=== PATIENT | female | born 1930 | race Two or more races ===

== ENCOUNTER 2016-07-20 17:00 | Inpatient (IN) | payer MEDICARE, OTHER ==
[2016-07-20] MEDS ORDERED: SODIUM CHLORIDE 0.9% 1,000 ML IV STA ×4 (17:16→17:21)
--- NOTE | 2016-07-20 17:28 | ED ---
Syncope HPI - General Chief Complaint: Syncope Stated Complaint: NVD Time Seen by Provider: 07/20/16 17:00 Source: patient, family, EMS, RN notes reviewed Mode of arrival: EMS Limitations: no limitations - History of Present Illness Initial Comments: This is a 86-year-old female who states she had onset nausea vomiting diarrhea this morning. She states she was going the bathroom and she became very dizzy and passed out. She denies any pain or injury she states she does not believe she was out for very long. She just feels generally weak she denies any chest pain palpitations fevers chills sweats or other symptoms. She's not been on any recent antibiotics. She denies any headache neck pain. MD Complaint: loss of consciousness, other - Related Data Home Medications Medication Instructions Recorded Confirmed Aspirin EC [Ecotrin Low Dose] 81 mg PO AC-SUPPER 11/10/14 07/20/16 Furosemide [Lasix] 40 mg PO [facility] 11/10/14 07/20/16 Glimepiride [Amaryl] 4 mg PO [facility] 11/10/14 07/20/16 Glucosamine Sulfate 500 mg PO DAILY@1200 11/10/14 07/20/16 Insulin Detemir [Levemir] 45 unit SQ -SUPP 11/10/14 07/20/16 L.acidoph,Paracasei, B.lactis 1 tab PO [facility] 11/10/14 07/20/16 [Probiotic] Levothyroxine Sodium [Synthroid] 75 mcg PO DAILY 11/10/14 07/20/16 Multivitamins, Thera [Multivitamin] 1 tab PO [facility] 11/10/14 07/20/16 Potassium Chloride [K-Tab ER] 10 meq PO [facility] 11/10/14 07/20/16 Pravastatin Sodium [Pravachol] 40 mg PO HS 11/10/14 07/20/16 Telmisartan [Micardis] 40 mg PO [facility] 11/10/14 07/20/16 Ubidecarenone [Co Q-10] 200 mg PO DAILY@1200 11/10/14 07/20/16 Warfarin [Coumadin] 2.5 mg PO SUMOWETHFRSA 11/10/14 07/20/16 Warfarin [Coumadin] 5 mg PO TU 11/10/14 07/20/16 sitaGLIPtin [Januvia] 100 mg PO QAM 11/10/14 07/20/16 Calcium/Magnesium/Zinc 1 tab PO AC-SUPPER 07/20/16 07/20/16 [Saduvih-Ugtxdrake-Hfrg Tablet] Cholecalciferol [Vitamin D3] 1,000 unit PO DAILY@1200 07/20/16 07/20/16 Cyanocobalamin [Vitamin B-12] 1,000 mcg PO AC-SUPPER 07/20/16 07/20/16 Glimepiride [Amaryl] 2 mg PO AC-SUPPER 07/20/16 07/20/16 Krill Oil 500 mg PO AC-SUPPER 07/20/16 07/20/16 Allergies Allergy/AdvReac Type Severity Reaction Status Date / Time No Known Allergies Allergy Verified 07/20/16 17:43 Review of Systems ROS Statement: Those systems with pertinent positive or pertinent negative responses have been documented in the HPI. ROS Other: All systems not noted in ROS Statement are negative. Past Medical History Past Medical History: Diabetes Mellitus Additional Past Medical History / Comment(s): back pain, diverticulitis History of Any Multi-Drug Resistant Organisms: None Reported Additional Past Surgical History / Comment(s): colostomy with reversal, DVT Past Psychological History: No Psychological Hx Reported Smoking Status: Never smoker Past Alcohol Use History: None Reported Past Drug Use History: None Reported General Exam - General Exam Comments Initial Comments: This is a well up well-nourished awake alert oriented 3 female demonstrating a Katty Coma Scale of 15 Limitations: no limitations General appearance: alert, in no apparent distress Head exam: Present: atraumatic, normocephalic, normal inspection Eye exam: Present: normal appearance, PERRL, EOMI. Absent: scleral icterus, conjunctival injection, periorbital swelling ENT exam: Present: mucous membranes dry Neck exam: Present: normal inspection. Absent: tenderness, meningismus, lymphadenopathy Respiratory exam: Present: normal lung sounds bilaterally. Absent: respiratory distress, wheezes, rales, rhonchi, stridor Cardiovascular Exam: Present: regular rate, normal rhythm, normal heart sounds. Absent: systolic murmur, diastolic murmur, rubs, gallop, clicks GI/Abdominal exam: Present: soft, normal bowel sounds. Absent: distended, tenderness, guarding, rebound, rigid, mass, bruit, pulsatile mass, hernia Extremities exam: Present: normal inspection, full ROM, normal capillary refill. Absent: tenderness, pedal edema, joint swelling, calf tenderness Back exam: Present: normal inspection Neurological exam: Present: alert, oriented X3, CN II-XII intact Psychiatric exam: Present: normal affect, normal mood Skin exam: Present: warm, dry, intact, normal color. Absent: rash Course Vital Signs 07/20/16 07/20/16 07/20/16 17:13 20:10 21:36 Temperature 100.0 F H Pulse Rate 96 103 H 101 H Respiratory 18 18 16 Rate Blood Pressure 126/70 127/59 124/59 O2 Sat by Pulse 95 96 93 L Oximetry 07/20/16 21:47 Temperature 98.8 F Pulse Rate 104 H Respiratory 16 Rate Blood Pressure 124/59 O2 Sat by Pulse 94 L Oximetry - Reevaluation(s) Reevaluation #1: 07/20/16 22:13 I did initially discuss the findings with the patient family members. Patient was receiving IV fluids and antibiotics she was feeling somewhat better Reevaluation #2: 07/20/16 22:14 Attempted ambulate patient failed. Patient was very unsteady on her feet very lightheaded still. Medical Decision Making - Medical Decision Making I did a long discussion with patient family members patient will be admitted for IV fluids IV antibiotics and evaluation for syncope. - Lab Data Result diagrams: 07/20/16 17:16 07/20/16 19:24 Lab Results 07/20/16 07/20/16 07/20/16 Range/Units 17:16 19:24 19:24 WBC 16.7 H (3.8-10.6) k/uL RBC 5.32 (3.80-5.40) m/uL Hgb 15.5 (11.4-16.0) gm/dL Hct 48.4 H (34.0-46.0) % MCV 91.0 (80.0-100.0) fL MCH 29.1 (25.0-35.0) pg MCHC 32.0 (31.0-37.0) g/dL RDW 13.0 (11.5-15.5) % Plt Count 280 (150-450) k/uL Neutrophils % 91 % Lymphocytes % 1 % Monocytes % 5 % Eosinophils % 2 % Basophils % 1 % Neutrophils # 15.2 H (1.3-7.7) k/uL Lymphocytes # 0.2 L (1.0-4.8) k/uL Monocytes # 0.8 (0-1.0) k/uL Eosinophils # 0.3 (0-0.7) k/uL Basophils # 0.1 (0-0.2) k/uL PT (9.0-12.0) sec INR (<1.1) APTT (22.0-30.0) sec Sodium (137-145) mmol/L Potassium (3.5-5.1) mmol/L Chloride (98-107) mmol/L Carbon Dioxide (22-30) mmol/L Anion Gap mmol/L BUN (7-17) mg/dL Creatinine (0.52-1.04) mg/dL Est GFR (MDRD) Af Amer (>60 ml/min/1.73 sqM) Est GFR (MDRD) Non-Af (>60 ml/min/1.73 sqM) Glucose (74-99) mg/dL Plasma Lactic Acid Shahram 1.5 (0.7-2.0) mmol/L Calcium (8.4-10.2) mg/dL Magnesium (1.6-2.3) mg/dL Total Bilirubin (0.2-1.3) mg/dL AST (14-36) U/L ALT (9-52) U/L Alkaline Phosphatase (38-126) U/L Total Creatine Kinase 57 (30-135) U/L CK-MB (CK-2) 0.7 (0.0-2.4) ng/mL CK-MB (CK-2) Rel Index 1.2 Troponin I <0.012 (0.000-0.034) ng/mL Total Protein (6.3-8.2) g/dL Albumin (3.5-5.0) g/dL Urine Color Urine Appearance (Clear) Urine pH (5.0-8.0) Ur Specific [place] (1.001-1.035) Urine Protein (Negative) Urine Glucose (UA) (Negative) Urine Ketones (Negative) Urine Blood (Negative) Urine Nitrate (Negative) Urine Bilirubin (Negative) Urine Urobilinogen (<2.0) mg/dL Ur Leukocyte Esterase (Negative) Urine RBC (0-5) /hpf Urine WBC (0-5) /hpf Ur Squamous Epith Cells (0-4) /hpf Urine Bacteria (None) /hpf Hyaline Casts (0-2) /lpf Urine Mucus (None) /hpf 07/20/16 07/20/16 07/20/16 Range/Units 19:24 19:24 20:10 WBC (3.8-10.6) k/uL RBC (3.80-5.40) m/uL Hgb (11.4-16.0) gm/dL Hct (34.0-46.0) % MCV (80.0-100.0) fL MCH (25.0-35.0) pg MCHC (31.0-37.0) g/dL RDW (11.5-15.5) % Plt Count (150-450) k/uL Neutrophils % % Lymphocytes % % Monocytes % % Eosinophils % % Basophils % % Neutrophils # (1.3-7.7) k/uL Lymphocytes # (1.0-4.8) k/uL Monocytes # (0-1.0) k/uL Eosinophils # (0-0.7) k/uL Basophils # (0-0.2) k/uL PT 35.5 H (9.0-12.0) sec INR 3.6 (<1.1) APTT 36.8 H (22.0-30.0) sec Sodium 141 (137-145) mmol/L Potassium 4.6 (3.5-5.1) mmol/L Chloride 101 (98-107) mmol/L Carbon Dioxide 28 (22-30) mmol/L Anion Gap 12 mmol/L BUN 36 H (7-17) mg/dL Creatinine 1.10 H (0.52-1.04) mg/dL Est GFR (MDRD) Af Amer 57 (>60 ml/min/1.73 sqM) Est GFR (MDRD) Non-Af 47 (>60 ml/min/1.73 sqM) Glucose 158 H (74-99) mg/dL Plasma Lactic Acid Shahram (0.7-2.0) mmol/L Calcium 8.3 L (8.4-10.2) mg/dL Magnesium 1.8 (1.6-2.3) mg/dL Total Bilirubin 0.5 (0.2-1.3) mg/dL AST 27 (14-36) U/L ALT 41 (9-52) U/L Alkaline Phosphatase 113 (38-126) U/L Total Creatine Kinase (30-135) U/L CK-MB (CK-2) (0.0-2.4) ng/mL CK-MB (CK-2) Rel Index Troponin I (0.000-0.034) ng/mL Total Protein 7.1 (6.3-8.2) g/dL Albumin 3.7 (3.5-5.0) g/dL Urine Color Yellow Urine Appearance Cloudy H (Clear) Urine pH 5.0 (5.0-8.0) Ur Specific [place] 1.016 (1.001-1.035) Urine Protein Negative (Negative) Urine Glucose (UA) Negative (Negative) Urine Ketones Negative (Negative) Urine Blood Negative (Negative) Urine Nitrate Positive H (Negative) Urine Bilirubin Negative (Negative) Urine Urobilinogen <2.0 (<2.0) mg/dL Ur Leukocyte Esterase Trace H (Negative) Urine RBC 4 (0-5) /hpf Urine WBC 3 (0-5) /hpf Ur Squamous Epith Cells 1 (0-4) /hpf Urine Bacteria Many H (None) /hpf Hyaline Casts 19 H (0-2) /lpf Urine Mucus Occasional H (None) /hpf - Radiology Data Radiology results: report reviewed (Imaging study shows no acute findings.), image reviewed Critical Care Time Critical Care Time: Yes Critical Care Time: 3 EMS of critical care time which included initial monitoring of the EMS run and discussed with paramedics. History physical lab and x-rays. Reevaluation patient multiple occasions for responsive therapy discussed with family members regarding the findings. Discussion with the medical physician. Admission orders and documentation of the above. Disposition Clinical Impression: Syncope due to orthostatic hypotension, Fall, Urinary tract infection, Renal insufficiency syndrome, Leukocytosis Disposition: ADMITTED IP TO THIS HOSP Condition: Stable
[2016-07-20 18:06] LABS: Basophils # (A) 0.1 k/uL (0-0.2); Basophils % (A) 1 %; CHCM 33.1; Eosinophils # (A) 0.3 k/uL (0-0.7); Eosinophils % (A) 2 %; HCT 48.4 % (34.0-46.0); HDW 2.46; HGB 15.5 gm/dL (11.4-16.0); Immature Gran Flag Slight; Luc # (Auto) 0.07; Luc % (Auto) 0; Lymphocytes # (A) 0.2 k/uL (1.0-4.8); Lymphocytes % (A) 1 %; MCH 29.1 pg (25.0-35.0); Mean Platelet Volume 8.6; Monocytes # (A) 0.8 k/uL (0-1.0); Monocytes % (A) 5 %; Neutrophils # (A) 15.2 k/uL (1.3-7.7); Neutrophils % (A) 91 %; RBC 5.32 m/uL (3.80-5.40); WBC 16.7 k/uL (3.8-10.6); WBC (Perox) 16.16
[2016-07-20] MEDS ORDERED: ONDANSETRON 4 MG/2 ML VIAL IVP STA (18:46)
--- NOTE | 2016-07-20 19:37 | XR ---
EXAMINATION TYPE: XR chest 2V DATE OF EXAM: 07/20/2016 7:22 PM COMPARISON: NONE HISTORY: 11/10/2014 TECHNIQUE: Frontal and lateral views of the chest are obtained. FINDINGS: There is no heart failure nor confluent pneumonic infiltrate. There is poor inspiration wi th coarsening of interstitial markings. Thoracic aorta is atheromatous. There are chest leads. There is no pleural effusion. IMPRESSION: Pulmonary fibrotic changes with poor inspiration. The inspiration is worse than last exa m.
--- NOTE | 2016-07-20 19:38 | XR ---
EXAMINATION TYPE: XR abdomen 2V DATE OF EXAM: 07/20/2016 7:22 PM COMPARISON: NONE HISTORY: Syncope TECHNIQUE: 3 views FINDINGS: There is no sign of intestinal obstruction or pneumoperitoneum. There is a gas-filled loop of bowel in the upper mid abdomen which could be the transverse colon. There is no sign of a mass. Th ere are clips from cholecystectomy. There is slight blunting of right costophrenic angle. IMPRESSION: Mild pleural reaction at the right lung base. No free air. There is a loop of bowel in th e upper abdomen could relate to ileus.
[2016-07-20 19:51] LABS: Calcium 8.3 mg/dL (8.4-10.2); Magnesium 1.8 mg/dL (1.6-2.3); Potassium 4.6 mmol/L (3.5-5.1); Total Bilirubin 0.5 mg/dL (0.2-1.3); Total Protein 7.1 g/dL (6.3-8.2)
[2016-07-20 19:57] LABS: INR 3.6 (<1.1); Partial Thromboplastin Time 36.8 sec (22.0-30.0); Prothrombin Time 35.5 sec (9.0-12.0)
[2016-07-20 20:08] LABS: Creatine Kinase 57 U/L (30-135)
[2016-07-20 20:22] LABS: Creatine Kinase MB 0.7 ng/mL (0.0-2.4); Troponin I <0.012 ng/mL (0.000-0.034)
[2016-07-20 20:29] LABS: Appearance,Urine Cloudy (Clear); Bacteria,Urine Many /hpf; Bilirubin,Urine Negative (Negative); Glucose,Urine (UA) Negative (Negative); Ketones,Urine Negative (Negative); Leukocyte Esterase,Urine Trace (Negative); Mucus,Urine Occasional /hpf; Nitrite,Urine Positive (Negative); Particle Count 9183; Protein,Urine Negative (Negative); RBC,Urine 4 /hpf (0-5); Specific Gravity,Urine 1.016 (1.001-1.035); Squamous Epithelial Cell,Urine 1 /hpf (0-4); UA Billing (MACRO vs. MICRO) MICRO; Urobilinogen,Urine <2.0 mg/dL (<2.0); WBC,Urine 3 /hpf (0-5)
[2016-07-20] MEDS ORDERED: NALOXONE 0.4 MG/ML 1 ML VIAL IV PRN (22:16)
[2016-07-20] MEDS ORDERED: ACETAMINOPHEN TAB 325 MG TAB PO PRN (22:16)
--- NOTE | 2016-07-20 22:21 | ED ---
Medical Decision Making - Lab Data Result diagrams: 07/20/16 17:16 07/20/16 19:24 Lab Results 07/20/16 07/20/16 07/20/16 Range/Units 17:16 19:24 19:24 WBC 16.7 H (3.8-10.6) k/uL RBC 5.32 (3.80-5.40) m/uL Hgb 15.5 (11.4-16.0) gm/dL Hct 48.4 H (34.0-46.0) % MCV 91.0 (80.0-100.0) fL MCH 29.1 (25.0-35.0) pg MCHC 32.0 (31.0-37.0) g/dL RDW 13.0 (11.5-15.5) % Plt Count 280 (150-450) k/uL Neutrophils % 91 % Lymphocytes % 1 % Monocytes % 5 % Eosinophils % 2 % Basophils % 1 % Neutrophils # 15.2 H (1.3-7.7) k/uL Lymphocytes # 0.2 L (1.0-4.8) k/uL Monocytes # 0.8 (0-1.0) k/uL Eosinophils # 0.3 (0-0.7) k/uL Basophils # 0.1 (0-0.2) k/uL PT (9.0-12.0) sec INR (<1.1) APTT (22.0-30.0) sec Sodium (137-145) mmol/L Potassium (3.5-5.1) mmol/L Chloride (98-107) mmol/L Carbon Dioxide (22-30) mmol/L Anion Gap mmol/L BUN (7-17) mg/dL Creatinine (0.52-1.04) mg/dL Est GFR (MDRD) Af Amer (>60 ml/min/1.73 sqM) Est GFR (MDRD) Non-Af (>60 ml/min/1.73 sqM) Glucose (74-99) mg/dL Plasma Lactic Acid Shahram 1.5 (0.7-2.0) mmol/L Calcium (8.4-10.2) mg/dL Magnesium (1.6-2.3) mg/dL Total Bilirubin (0.2-1.3) mg/dL AST (14-36) U/L ALT (9-52) U/L Alkaline Phosphatase (38-126) U/L Total Creatine Kinase 57 (30-135) U/L CK-MB (CK-2) 0.7 (0.0-2.4) ng/mL CK-MB (CK-2) Rel Index 1.2 Troponin I <0.012 (0.000-0.034) ng/mL Total Protein (6.3-8.2) g/dL Albumin (3.5-5.0) g/dL Urine Color Urine Appearance (Clear) Urine pH (5.0-8.0) Ur Specific Rule (1.001-1.035) Urine Protein (Negative) Urine Glucose (UA) (Negative) Urine Ketones (Negative) Urine Blood (Negative) Urine Nitrate (Negative) Urine Bilirubin (Negative) Urine Urobilinogen (<2.0) mg/dL Ur Leukocyte Esterase (Negative) Urine RBC (0-5) /hpf Urine WBC (0-5) /hpf Ur Squamous Epith Cells (0-4) /hpf Urine Bacteria (None) /hpf Hyaline Casts (0-2) /lpf Urine Mucus (None) /hpf 07/20/16 07/20/16 07/20/16 Range/Units 19:24 19:24 20:10 WBC (3.8-10.6) k/uL RBC (3.80-5.40) m/uL Hgb (11.4-16.0) gm/dL Hct (34.0-46.0) % MCV (80.0-100.0) fL MCH (25.0-35.0) pg MCHC (31.0-37.0) g/dL RDW (11.5-15.5) % Plt Count (150-450) k/uL Neutrophils % % Lymphocytes % % Monocytes % % Eosinophils % % Basophils % % Neutrophils # (1.3-7.7) k/uL Lymphocytes # (1.0-4.8) k/uL Monocytes # (0-1.0) k/uL Eosinophils # (0-0.7) k/uL Basophils # (0-0.2) k/uL PT 35.5 H (9.0-12.0) sec INR 3.6 (<1.1) APTT 36.8 H (22.0-30.0) sec Sodium 141 (137-145) mmol/L Potassium 4.6 (3.5-5.1) mmol/L Chloride 101 (98-107) mmol/L Carbon Dioxide 28 (22-30) mmol/L Anion Gap 12 mmol/L BUN 36 H (7-17) mg/dL Creatinine 1.10 H (0.52-1.04) mg/dL Est GFR (MDRD) Af Amer 57 (>60 ml/min/1.73 sqM) Est GFR (MDRD) Non-Af 47 (>60 ml/min/1.73 sqM) Glucose 158 H (74-99) mg/dL Plasma Lactic Acid Shahram (0.7-2.0) mmol/L Calcium 8.3 L (8.4-10.2) mg/dL Magnesium 1.8 (1.6-2.3) mg/dL Total Bilirubin 0.5 (0.2-1.3) mg/dL AST 27 (14-36) U/L ALT 41 (9-52) U/L Alkaline Phosphatase 113 (38-126) U/L Total Creatine Kinase (30-135) U/L CK-MB (CK-2) (0.0-2.4) ng/mL CK-MB (CK-2) Rel Index Troponin I (0.000-0.034) ng/mL Total Protein 7.1 (6.3-8.2) g/dL Albumin 3.7 (3.5-5.0) g/dL Urine Color Yellow Urine Appearance Cloudy H (Clear) Urine pH 5.0 (5.0-8.0) Ur Specific Rule 1.016 (1.001-1.035) Urine Protein Negative (Negative) Urine Glucose (UA) Negative (Negative) Urine Ketones Negative (Negative) Urine Blood Negative (Negative) Urine Nitrate Positive H (Negative) Urine Bilirubin Negative (Negative) Urine Urobilinogen <2.0 (<2.0) mg/dL Ur Leukocyte Esterase Trace H (Negative) Urine RBC 4 (0-5) /hpf Urine WBC 3 (0-5) /hpf Ur Squamous Epith Cells 1 (0-4) /hpf Urine Bacteria Many H (None) /hpf Hyaline Casts 19 H (0-2) /lpf Urine Mucus Occasional H (None) /hpf Disposition Clinical Impression: Syncope due to orthostatic hypotension, Fall, Urinary tract infection, Renal insufficiency syndrome, Leukocytosis Disposition: ADMITTED IP TO THIS HOSP Condition: Stable Referrals: Fransico Cannon MD [Primary Care Provider] - 1-2 days
[2016-07-20 22:55] LABS: Hemoglobin A1C 8.6 % (4.2-6.1)
[2016-07-21 00:04] LABS: Glucose,Whole Blood 249 mg/dL (75-99)
[2016-07-21] MEDS: SODIUM CHLORIDE 0.9% 1,000 ML IV SCH ×3 (06:14→18:08)
[2016-07-21 06:53] LABS: Glucose,Whole Blood 235 mg/dL (75-99)
[2016-07-21] MEDS: INSULIN LISPRO (humaLOG) 300 UNIT/3 ML VIAL SQ SCH ×4 (07:50→21:39)
[2016-07-21] MEDS: FUROSEMIDE 40 MG TAB PO SCH (07:52)
[2016-07-21] MEDS: LOSARTAN 50 MG TAB PO SCH (07:53)
[2016-07-21] MEDS: LEVOTHYROXINE 75 MCG TAB PO SCH (07:53)
[2016-07-21] MEDS: GLIMEPIRIDE 4 MG TAB PO SCH ×2 (07:53→18:07)
[2016-07-21] MEDS: LINAGLIPTIN 5 MG TABLET PO SCH (07:53)
[2016-07-21] MEDS: MULTIVITAMINS, THERA 1 EACH TAB PO SCH (07:54)
[2016-07-21] MEDS: POTASSIUM CHLORIDE ER 10 MEQ TAB.ER.PRT PO SCH (07:54)
[2016-07-21 10:10] LABS: INR 2.9 (<1.1); Prothrombin Time 28.3 sec (9.0-12.0)
[2016-07-21] MEDS ORDERED: NON-FORMULARY DRUG (Glucosamine Sulfate 500 MG) PO SCH (12:00)
[2016-07-21] MEDS ORDERED: NON-FORMULARY DRUG (Ubidecarenone [Co Q-10] 200 MG) PO SCH (12:00)
[2016-07-21 12:10] LABS: Glucose,Whole Blood 142 mg/dL (75-99)
[2016-07-21 17:11] LABS: Glucose,Whole Blood 92 mg/dL (75-99)
[2016-07-21] MEDS: WARFARIN 2.5 MG TAB PO SCH (18:08)
[2016-07-21] MEDS: ASPIRIN 81 MG CHEW PO SCH (18:08)
[2016-07-21] MEDS: INSULIN DETEMIR 100 UNIT/ML 10 ML VIAL SQ SCH (18:14)
--- NOTE | 2016-07-21 20:10 | P.HPIM ---
History of Present Illness H&P Date: 07/21/16 Chief Complaint: Syncope/UTI with sepsis This is an 84-year-old female one of Dr. 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, diabetes mellitus type 2, diabetic polyneuropathy, DVT of the left lower extremity, patient was in her usual state of health until about yesterday when she was walking out of the bathroom getting to the dining room when all of a sudden she felt dizzy lightheaded and she landed on the floor without any injury patient passed out for a few seconds and the Lifeline was pushed and the patient was transported to the emergency department at [facility] where she was evaluated in the ER she was found to have a urinary tract infection with the acute kidney injury due to severe dehydration and patient was admitted to the hospital for UTI with sepsis along with acute kidney injury she was placed on IV antibiotic as well as IV fluid resuscitation she was admitted under our service. Review of Systems Constitutional: Reports fatigue, Reports fever, Reports malaise, Reports weakness, Reports weight gain, Denies anorexia, Denies chronic headaches Eyes: denies blurred vision Ears: deny: decreased hearing Ears, nose, mouth and throat: Denies dysphagia, Denies neck lump, Denies sore throat Cardiovascular: Reports decreased exercise tolerance, Reports dyspnea on exertion, Reports high blood pressure, Reports shortness of breath, Reports syncope, Denies chest pain Respiratory: Reports sleep apnea, Reports snoring, Denies congestion, Denies cough, Denies cough with sputum, Denies home oxygen, Denies wheezing Gastrointestinal: Denies abdominal pain, Denies belching, Denies bloating, Denies BRBPR, Denies heartburn, Denies hematemesis, Denies hematochezia, Denies melena, Denies nausea, Denies vomiting Genitourinary: Denies dysuria, Denies hematuria Musculoskeletal: Denies myalgias Musculoskeletal: absent: ankle pain, ankle stiffness, ankle swelling, elbow pain , elbow stiffness, elbow swelling, foot pain, foot stiffness, foot swelling, hand pain, hand stiffness, hand swelling, hip pain, hip stiffness, hip swelling , knee pain, knee stiffness, knee swelling, shoulder pain, shoulder stiffness, shoulder swelling, wrist pain, wrist stiffness, wrist swelling Integumentary: Reports rash (Left lower extremity stasis dermatitis rash with mycotic rash to the left foot along with Xerosis), Denies pruritus Neurological: Reports syncope, Denies numbness, Denies weakness Psychiatric: Denies anxiety, Denies depression Endocrine: Denies fatigue, Denies weight change Past Medical History Past Medical History: Coronary Artery Disease (CAD), Diabetes Mellitus, Deep Vein Thrombosis (DVT), GERD/Reflux, Hyperlipidemia, Hypertension, Osteoarthritis (OA), Thyroid Disorder Additional Past Medical History / Comment(s): back pain, diverticulitis History of Any Multi-Drug Resistant Organisms: None Reported Past Surgical History: Adenoidectomy, Tonsillectomy Additional Past Surgical History / Comment(s): colostomy with reversal, DVT Past Psychological History: No Psychological Hx Reported Smoking Status: Never smoker Past Alcohol Use History: None Reported Past Drug Use History: None Reported - Past Family History Father History Unknown: Yes Family Medical History: No Reported History (Father at age of 90 from old age.) Mother Family Medical History: No Reported History (Mother at age 92 from old age. ) Brother(s) Family Medical History: No Reported History (Patient has 2 brothers one lives in [place] was doing okay.) Sister(s) Family Medical History: No Reported History (Patient had one sister who from of bowel problem.) Daughter(s) Family Medical History: No Reported History (Patient has 2 daughters no major medical problems) Son(s) Family Medical History: No Reported History (Patient has 2 sons no major medical problems) Medications and Allergies Home Medications Medication Instructions Recorded Confirmed Type Aspirin EC [Ecotrin Low Dose] 81 mg PO AC-SUPPER 11/10/14 07/20/16 History Furosemide [Lasix] 40 mg PO QAM 11/10/14 07/20/16 History Glimepiride [Amaryl] 4 mg PO QAM 11/10/14 07/20/16 History Glucosamine Sulfate 500 mg PO DAILY@1200 11/10/14 07/20/16 History Insulin Detemir [Levemir] 45 unit SQ AC-SUPPER 11/10/14 07/20/16 History L.acidoph,Paracasei, B.lactis 1 tab PO QAM 11/10/14 07/20/16 History [Probiotic] Levothyroxine Sodium [Synthroid] 75 mcg PO DAILY 11/10/14 07/20/16 History Multivitamins, Thera [Multivitamin] 1 tab PO QA 11/10/14 07/20/16 History Potassium Chloride [K-Tab ER] 10 meq PO QAM 11/10/14 07/20/16 History Pravastatin Sodium [Pravachol] 40 mg PO HS 11/10/14 07/20/16 History Telmisartan [Micardis] 40 mg PO QA 11/10/14 07/20/16 History Ubidecarenone [Co Q-10] 200 mg PO DAILY@1200 11/10/14 07/20/16 History Warfarin [Coumadin] 2.5 mg PO SUMOWETHFRSA 11/10/14 07/20/16 History Warfarin [Coumadin] 5 mg PO TU 11/10/14 07/20/16 History sitaGLIPtin [Januvia] 100 mg PO [facility] 11/10/14 07/20/16 History Calcium/Magnesium/Zinc 1 tab PO AC-SUPPER 07/20/16 07/20/16 History [Ivcragi-Xfczoinan-Wktr Tablet] Cholecalciferol [Vitamin D3] 1,000 unit PO DAILY@1200 07/20/16 07/20/16 History Cyanocobalamin [Vitamin B-12] 1,000 mcg PO AC-SUPPER 07/20/16 07/20/16 History Glimepiride [Amaryl] 2 mg PO AC-SUPPER 07/20/16 07/20/16 History Krill Oil 500 mg PO AC-SUPPER 07/20/16 07/20/16 History Allergies Allergy/AdvReac Type Severity Reaction Status Date / Time No Known Allergies Allergy Verified 07/20/16 17:43 Physical Exam Vitals: Vital Signs Temp Pulse Resp BP Pulse Ox 07/21/16 15:00 99.4 F 75 18 100/55 96 07/21/16 10:07 94 L 07/21/16 07:00 98.0 F 83 18 111/52 94 L 07/21/16 00:45 99.1 F 07/20/16 23:54 100.7 F H 98 21 122/68 94 L Intake and Output 07/21/16 07/21/16 07/21/16 06:59 14:59 22:59 Other: Voiding Method Bedside Commode Bedside Commode Bedside Commode Incontinent Incontinent Incontinent # Voids 2 1 1 # Bowel Movements 1 Weight 101.5 kg - Constitutional General appearance: obese - EENT Eyes: anicteric sclerae, PERRLA, no ptosis, no scleral icterus, normal appearance ENT: normal oropharynx, no thrush, no tonsillar exudates Ears: bilateral: normal - Neck Neck: no lymphadenopathy, normal ROM, no rigidity, no stridor, no thyromegaly Carotids: bilateral: upstroke delayed Thyroid: bilateral: normal size - Respiratory Respiratory: bilateral: diminished, negative: dullness, rales, rhonchi, wheezing , prolonged expiration, prolonged inspiration - Cardiovascular Rhythm: regularly irregular Heart sounds: normal: S1, S2 Abnormal Heart Sounds: systolic murmur, no rub, no click - Gastrointestinal General gastrointestinal: normal bowel sounds, soft, no splenomegaly, no tenderness, no umbilical hernia, ventral hernia - Integumentary Integumentary: normal, normal turgor - Neurologic Neurologic: CNII-XII intact - Musculoskeletal Musculoskeletal: generalized weakness - Psychiatric Psychiatric: A&O x's 3, appropriate affect, intact judgment & insight Results CBC & Chem 7: 07/20/16 17:16 07/20/16 19:24 Labs: Abnormal Lab Results - Last 24 Hours (Table) 07/21/16 07/21/16 07/21/16 Range/Units 00:04 06:51 09:19 PT 28.3 H (9.0-12.0) sec POC Glucose (mg/dL) 249 H 235 H (75-99) mg/dL 07/21/16 Range/Units 12:09 PT (9.0-12.0) sec POC Glucose (mg/dL) 142 H (75-99) mg/dL Thrombosis Risk Factor Assmnt - DVT/VTE Prophylaxis DVT/VTE Prophylaxis: Pharmacologic Prophylaxis ordered, Mechanical Prophylaxis ordered - Choose All That Apply Any of the Below Risk Factors Present?: Yes Each Factor Represents 1 point: Medical pt on bed rest Other Risk Factors: Yes Each Risk Factor Represents 3 Points: Age 75 years or older Other congenital or acquired thrombophilia - If yes, enter type in comment: No Thrombosis Risk Factor Assessment Total Risk Factor Score: 4 Thrombosis Risk Factor Assessment Level: Moderate Risk Assessment and Plan Plan: Assessment and plan: 1. Acute kidney injury due to prerenal azotemia. Patient did receive IV fluid resuscitation over night and now we will Hep-Lock her IV. 2. UTI with sepsis. Urine culture, blood culture, Rocephin 1 g IV piggyback every 24 hours. 3. Chronic systolic heart failure. Continue patient on Lasix 40 mg orally once every day, losartan 100 mg orally once every day. 4. Diabetes mellitus type 2. Continue patient on Levemir 45 units at bedtime along with sliding scale insulin, continue patient on Amaryl 4 mg in the morning and 2 mg at bedtime. Continue BGM before each meal and at bedtime. 5. Chronic atrial fibrillation. Continue Coumadin and monitor PT and INR. 6. Hypertension and hypertensive cardiovascular disease. Continue losartan 100 mg orally once every day. 7. Hyperthyroidism. Continue levothyroxin 75 g orally once every day. 8. Skin rash to the left lower extremity thought to be due to stasis dermatitis and mycotic rash to both feet. Try Lotrisone cream applied twice every day, and she may need to have Lac-Hydrin lotion 12% to be applied in between. 9. Hyperlipidemia. Continue pravastatin 40 mg orally once a bedtime. 10. DVT prophylaxis. Continue Coumadin keep her INR 2-3. 11. GI prophylaxis. Continue Protonix 40 mg IV push every 24 hours. 12. Patient is a full code. 13. Admit to inpatient. Estimate a length of stay 2 midnights.
[2016-07-21 21:10] LABS: Glucose,Whole Blood 170 mg/dL (75-99)
[2016-07-21] MEDS: PRAVASTATIN SODIUM 40 MG TAB PO SCH (21:36)
[2016-07-21] MEDS: CLOTRIMAZOLE/BETAMETH 1-0.05% CREAM 45 GM TUBE TOPICAL SCH (21:37)
[2016-07-22] MEDS: SODIUM CHLORIDE 0.9% 1,000 ML IV SCH ×2 (05:16→15:32)
[2016-07-22 07:12] LABS: Glucose,Whole Blood 90 mg/dL (75-99)
[2016-07-22] MEDS: INSULIN LISPRO (humaLOG) 300 UNIT/3 ML VIAL SQ SCH ×4 (07:28→21:41)
[2016-07-22 08:24] LABS: CH 29.9; CHCM 32.7; MCH 29.9 pg (25.0-35.0); MCHC 32.6 g/dL (31.0-37.0); MCV 91.9 fL (80.0-100.0); Mean Platelet Volume 7.8; RBC 4.13 m/uL (3.80-5.40); RDW 13.1 % (11.5-15.5); WBC 10.7 k/uL (3.8-10.6)
[2016-07-22 08:28] LABS: HGB 12.4 gm/dL (11.4-16.0)
[2016-07-22 08:31] LABS: INR 2.3 (<1.1); Prothrombin Time 21.9 sec (9.0-12.0)
[2016-07-22 08:41] LABS: Calcium 7.6 mg/dL (8.4-10.2); Potassium 3.9 mmol/L (3.5-5.1)
[2016-07-22] MEDS: CLOTRIMAZOLE/BETAMETH 1-0.05% CREAM 45 GM TUBE TOPICAL SCH ×2 (10:05→21:24)
[2016-07-22] MEDS: LINAGLIPTIN 5 MG TABLET PO SCH (10:06)
[2016-07-22] MEDS: LEVOTHYROXINE 75 MCG TAB PO SCH (10:06)
[2016-07-22] MEDS: FUROSEMIDE 40 MG TAB PO SCH (10:06)
[2016-07-22] MEDS: LOSARTAN 50 MG TAB PO SCH (10:06)
[2016-07-22] MEDS: GLIMEPIRIDE 4 MG TAB PO SCH ×2 (10:06→18:01)
[2016-07-22] MEDS: MULTIVITAMINS, THERA 1 EACH TAB PO SCH (10:11)
[2016-07-22] MEDS: POTASSIUM CHLORIDE ER 10 MEQ TAB.ER.PRT PO SCH (10:11)
[2016-07-22 11:39] LABS: Glucose,Whole Blood 92 mg/dL (75-99)
[2016-07-22 16:14] LABS: Glucose,Whole Blood 75 mg/dL (75-99)
--- NOTE | 2016-07-22 16:31 | P.PN ---
Subjective This is an 84-year-old female one of Dr. 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, diabetes mellitus type 2, diabetic polyneuropathy, DVT of the left lower extremity, patient was in her usual state of health until about yesterday when she was walking out of the bathroom getting to the dining room when all of a sudden she felt dizzy lightheaded and she landed on the floor without any injury patient passed out for a few seconds and the Lifeline was pushed and the patient was transported to the emergency department at [facility] where she was evaluated in the ER she was found to have a urinary tract infection with the acute kidney injury due to severe dehydration and patient was admitted to the hospital for UTI with sepsis along with acute kidney injury she was placed on IV antibiotic as well as IV fluid resuscitation she was admitted under our service. 07/22: Repeat BUN 33 and creatinine 1.07. WBC count is down to 10.7. INR 2.3. Urine culture is showing gram-negative bacilli. Patient is extremely weak and very tired today. PT and OT consults added. Patient may benefit for rehab but she wants to return home. Objective - Vital Signs Vital signs: Vital Signs Temp 98.7 F 07/22/16 07:00 Pulse 80 07/22/16 07:00 Resp 18 07/22/16 07:00 BP 113/65 07/22/16 07:00 Pulse Ox 92 L 07/22/16 07:00 Intake & Output 07/21/16 07/22/16 07/22/16 18:59 06:59 18:59 Weight 101 kg Other: Voiding Method Bedside Commode Diaper Diaper Incontinent # Voids 1 2 # Bowel Movements 1 - Exam General appearance: obese - EENT Eyes: anicteric sclerae, PERRLA, no ptosis, no scleral icterus, normal appearance ENT: normal oropharynx, no thrush, no tonsillar exudates Ears: bilateral: normal - Neck Neck: no lymphadenopathy, normal ROM, no rigidity, no stridor, no thyromegaly Carotids: bilateral: upstroke delayed Thyroid: bilateral: normal size - Respiratory Respiratory: bilateral: diminished, negative: dullness, rales, rhonchi, wheezing , prolonged expiration, prolonged inspiration - Cardiovascular Rhythm: regularly irregular Heart sounds: normal: S1, S2 Abnormal Heart Sounds: systolic murmur, no rub, no click - Gastrointestinal General gastrointestinal: normal bowel sounds, soft, no splenomegaly, no tenderness, no umbilical hernia, ventral hernia - Integumentary Integumentary: normal, normal turgor - Neurologic Neurologic: CNII-XII intact - Musculoskeletal Musculoskeletal: generalized weakness - Psychiatric Psychiatric: A&O x's 3, appropriate affect, intact judgment & insight - Labs CBC & Chem 7: 07/22/16 07:41 07/22/16 07:41 Labs: Abnormal Lab Results - Last 24 Hours (Table) 07/21/16 07/21/16 07/22/16 Range/Units 12:09 21:08 07:41 WBC 10.7 H (3.8-10.6) k/uL PT (9.0-12.0) sec BUN (7-17) mg/dL Creatinine (0.52-1.04) mg/dL POC Glucose (mg/dL) 142 H 170 H (75-99) mg/dL Calcium (8.4-10.2) mg/dL 07/22/16 07/22/16 Range/Units 07:41 07:41 WBC (3.8-10.6) k/uL PT 21.9 H (9.0-12.0) sec BUN 33 H (7-17) mg/dL Creatinine 1.07 H (0.52-1.04) mg/dL POC Glucose (mg/dL) (75-99) mg/dL Calcium 7.6 L (8.4-10.2) mg/dL Assessment and Plan Plan: 1. Acute kidney injury due to prerenal azotemia. Patient did receive IV fluid resuscitation over night and now we will Hep-Lock her IV. 2. UTI with sepsis. Urine culture, blood culture, Rocephin 1 g IV piggyback every 24 hours. 3. Chronic systolic heart failure. Continue patient on Lasix 40 mg orally once every day, losartan 100 mg orally once every day. 4. Diabetes mellitus type 2. Continue patient on Levemir 45 units at bedtime along with sliding scale insulin, continue patient on Amaryl 4 mg in the morning and 2 mg at bedtime. Continue BGM before each meal and at bedtime. 5. Chronic atrial fibrillation. Continue Coumadin and monitor PT and INR. 6. Hypertension and hypertensive cardiovascular disease. Continue losartan 100 mg orally once every day. 7. Hyperthyroidism. Continue levothyroxin 75 g orally once every day. 8. Skin rash to the left lower extremity thought to be due to stasis dermatitis and mycotic rash to both feet. Try Lotrisone cream applied twice every day, and she may need to have Lac-Hydrin lotion 12% to be applied in between. 9. Hyperlipidemia. Continue pravastatin 40 mg orally once a bedtime. 10. DVT prophylaxis. Continue Coumadin keep her INR 2-3. 11. GI prophylaxis. Continue Protonix 40 mg IV push every 24 hours. 12. Patient is a full code. Discharge plan: Home with [facility] or subacute rehab. PT and OT ordered. Impression and plan of care have been directed as dictated by the signing physician. Rhonda Davis nurse practitioner acting as scribe for signing physician. Time with Patient: Greater than 30
[2016-07-22] MEDS: ASPIRIN 81 MG CHEW PO SCH (18:00)
[2016-07-22] MEDS: INSULIN DETEMIR 100 UNIT/ML 10 ML VIAL SQ SCH (18:01)
[2016-07-22] MEDS: WARFARIN 2.5 MG TAB PO SCH (18:01)
[2016-07-22] MEDS: PRAVASTATIN SODIUM 40 MG TAB PO SCH (21:23)
[2016-07-22] MEDS: AMMONIUM LACTATE 12% LOTION 225 GM BTL TOPICAL SCH (21:23)
[2016-07-22 21:27] LABS: Glucose,Whole Blood 43 mg/dL (75-99)
[2016-07-22 21:27] LABS: Glucose,Whole Blood 44 mg/dL (75-99)
[2016-07-22 21:39] LABS: Glucose,Whole Blood 49 mg/dL (75-99)
[2016-07-22 21:53] LABS: Glucose,Whole Blood 39 mg/dL (75-99)
[2016-07-22 22:10] LABS: Glucose,Whole Blood 46 mg/dL (75-99)
[2016-07-22 22:27] LABS: Glucose,Whole Blood 52 mg/dL (75-99)
[2016-07-22 23:21] LABS: Glucose,Whole Blood 107 mg/dL (75-99)
[2016-07-23 00:21] LABS: Glucose,Whole Blood 75 mg/dL (75-99)
[2016-07-23 01:14] LABS: Glucose,Whole Blood 89 mg/dL (75-99)
[2016-07-23] MEDS ORDERED: DEXTROSE 5% IN WATER 1,000 ML IV ONE (02:57)
[2016-07-23 03:08] LABS: Glucose,Whole Blood 95 mg/dL (75-99)
[2016-07-23 04:13] LABS: Glucose,Whole Blood 94 mg/dL (75-99)
[2016-07-23 06:07] LABS: Glucose,Whole Blood 82 mg/dL (75-99)
[2016-07-23 07:34] LABS: Glucose,Whole Blood 76 mg/dL (75-99)
[2016-07-23] MEDS: INSULIN LISPRO (humaLOG) 300 UNIT/3 ML VIAL SQ SCH ×4 (07:45→21:11)
[2016-07-23] MEDS: AMMONIUM LACTATE 12% LOTION 225 GM BTL TOPICAL SCH ×2 (07:55→19:53)
[2016-07-23] MEDS: CLOTRIMAZOLE/BETAMETH 1-0.05% CREAM 45 GM TUBE TOPICAL SCH ×2 (07:55→19:51)
[2016-07-23] MEDS: LEVOTHYROXINE 75 MCG TAB PO SCH (07:56)
[2016-07-23] MEDS: GLIMEPIRIDE 4 MG TAB PO SCH ×2 (07:56→17:00)
[2016-07-23] MEDS: FUROSEMIDE 40 MG TAB PO SCH (07:56)
[2016-07-23] MEDS: LINAGLIPTIN 5 MG TABLET PO SCH (07:57)
[2016-07-23] MEDS: MULTIVITAMINS, THERA 1 EACH TAB PO SCH (07:57)
[2016-07-23] MEDS: LOSARTAN 50 MG TAB PO SCH (07:57)
[2016-07-23] MEDS: POTASSIUM CHLORIDE ER 10 MEQ TAB.ER.PRT PO SCH (07:58)
[2016-07-23 08:41] LABS: CH 29.8; CHCM 32.4; HCT 37.2 % (34.0-46.0); HDW 2.55; HGB 11.8 gm/dL (11.4-16.0); MCH 29.3 pg (25.0-35.0); MCHC 31.7 g/dL (31.0-37.0); MCV 92.6 fL (80.0-100.0); Mean Platelet Volume 7.9; RBC 4.02 m/uL (3.80-5.40); RDW 13.3 % (11.5-15.5); WBC 6.4 k/uL (3.8-10.6)
[2016-07-23 08:44] LABS: INR 1.8 (<1.1); Prothrombin Time 17.7 sec (9.0-12.0)
[2016-07-23 09:02] LABS: Anion Gap 9 mmol/L; Blood Urea Nitrogen 32 mg/dL (7-17); Calcium 7.4 mg/dL (8.4-10.2); Carbon Dioxide 28 mmol/L (22-30); Chloride 102 mmol/L (98-107); Glucose 52 mg/dL (74-99); Non-African American GFR(MDRD) 57 (>60 ml/min/1.73 sqM); Potassium 3.9 mmol/L (3.5-5.1); Sodium 139 mmol/L (137-145)
[2016-07-23 11:49] LABS: Glucose,Whole Blood 90 mg/dL (75-99)
--- NOTE | 2016-07-23 16:11 | P.PN ---
Subjective Principal diagnosis: Syncope/UTI with sepsis. 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, diabetes mellitus type 2, diabetic polyneuropathy, DVT of the left lower extremity, patient was in her usual state of health until about yesterday when she was walking out of the bathroom getting to the dining room when all of a sudden she felt dizzy lightheaded and she landed on the floor without any injury patient passed out for a few seconds and the Lifeline was pushed and the patient was transported to the emergency department at [facility] where she was evaluated in the ER she was found to have a urinary tract infection with the acute kidney injury due to severe dehydration and patient was admitted to the hospital for UTI with sepsis along with acute kidney injury she was placed on IV antibiotic as well as IV fluid resuscitation she was admitted under our service. Today the patient is sitting up in bed in no apparent distress she denies any chest pain, shortness breath, she is a bit stronger, she denies any abdominal pain, she hasn't had a bowel movement, she was seen by physical therapy, her daughter is the bedside as well as her , she continued to have some weakness in both lower extremities. Objective - Vital Signs Vital signs: Vital Signs Temp 96.6 F L 07/23/16 07:00 Pulse 56 L 07/23/16 07:00 Resp 16 07/23/16 07:00 BP 120/54 07/23/16 07:00 Pulse Ox 96 07/23/16 07:00 Intake & Output 07/22/16 07/23/16 07/23/16 18:59 06:59 18:59 Weight 106 kg Other: Voiding Method Diaper Bedside Commode Bedpan # Voids 2 1 1 - Exam - Constitutional General appearance: obese - EENT Eyes: anicteric sclerae, PERRLA, no ptosis, no scleral icterus, normal appearance ENT: normal oropharynx, no thrush, no tonsillar exudates Ears: bilateral: normal - Neck Neck: no lymphadenopathy, normal ROM, no rigidity, no stridor, no thyromegaly Carotids: bilateral: upstroke delayed Thyroid: bilateral: normal size - Respiratory Respiratory: bilateral: diminished, negative: dullness, rales, rhonchi, wheezing , prolonged expiration, prolonged inspiration - Cardiovascular Rhythm: regularly irregular Heart sounds: normal: S1, S2 Abnormal Heart Sounds: systolic murmur, no rub, no click - Gastrointestinal General gastrointestinal: normal bowel sounds, soft, no splenomegaly, no tenderness, no umbilical hernia, ventral hernia - Integumentary Integumentary: normal, normal turgor - Neurologic Neurologic: CNII-XII intact - Musculoskeletal Musculoskeletal: generalized weakness - Psychiatric Psychiatric: A&O x's 3, appropriate affect, intact judgment & insight - Labs CBC & Chem 7: 07/23/16 07:49 07/23/16 07:49 Labs: Abnormal Lab Results - Last 24 Hours (Table) 07/22/16 07/22/16 07/22/16 Range/Units 21:17 21:18 21:38 PT (9.0-12.0) sec BUN (7-17) mg/dL Glucose (74-99) mg/dL POC Glucose (mg/dL) 43 L 44 L 49 L (75-99) mg/dL Calcium (8.4-10.2) mg/dL 07/22/16 07/22/16 07/22/16 Range/Units 21:51 22:08 22:22 PT (9.0-12.0) sec BUN (7-17) mg/dL Glucose (74-99) mg/dL POC Glucose (mg/dL) 39 L 46 L 52 L (75-99) mg/dL Calcium (8.4-10.2) mg/dL 07/22/16 07/23/16 07/23/16 Range/Units 23:01 07:49 07:49 PT 17.7 H (9.0-12.0) sec BUN 32 H (7-17) mg/dL Glucose 52 L (74-99) mg/dL POC Glucose (mg/dL) 107 H (75-99) mg/dL Calcium 7.4 L (8.4-10.2) mg/dL Assessment and Plan Plan: Assessment and plan: 1. Acute kidney injury due to prerenal azotemia. Patient did receive IV fluid resuscitation over night and now we will Hep-Lock her IV. Much better. 2. E. coli UTI with sepsis. Urine culture showed E. coli, blood culture, Rocephin 1 g IV piggyback every 24 hours. We will switch to Ceftin 250 mg orally twice every day for 10 days in the next 24 hours and hopefully send her home. 3. Chronic systolic heart failure. Continue patient on Lasix 40 mg orally once every day, losartan 100 mg orally once every day. 4. Diabetes mellitus type 2. Continue patient on Levemir 45 units at bedtime along with sliding scale insulin, continue patient on Amaryl 4 mg in the morning and 2 mg at bedtime. Continue BGM before each meal and at bedtime. 5. Chronic atrial fibrillation. Continue Coumadin and monitor PT and INR. 6. Hypertension and hypertensive cardiovascular disease. Continue losartan 100 mg orally once every day. 7. Hypothyroidism. Continue levothyroxin 75 g orally once every day. 8. Skin rash to the left lower extremity thought to be due to stasis dermatitis and mycotic rash to both feet. Try Lotrisone cream applied twice every day, and she may need to have Lac-Hydrin lotion 12% to be applied in between. 9. Hyperlipidemia. Continue pravastatin 40 mg orally once a bedtime. 10. DVT prophylaxis. Continue Coumadin keep her INR 2-3. 11. GI prophylaxis. Continue Protonix 40 mg IV push every 24 hours. 12. Patient is a full code. 13. Home tomorrow morning.
[2016-07-23 16:50] LABS: Glucose,Whole Blood 92 mg/dL (75-99)
[2016-07-23] MEDS: INSULIN DETEMIR 100 UNIT/ML 10 ML VIAL SQ SCH (17:00)
[2016-07-23] MEDS: ASPIRIN 81 MG CHEW PO SCH (17:25)
[2016-07-23] MEDS: WARFARIN 2.5 MG TAB PO SCH (17:25)
[2016-07-23] MEDS ORDERED: INSULIN DETEMIR 100 UNIT/ML 10 ML VIAL SQ SCH ×2 (17:30)
[2016-07-23] MEDS: PRAVASTATIN SODIUM 40 MG TAB PO SCH (19:52)
[2016-07-23 21:06] LABS: Glucose,Whole Blood 48 mg/dL (75-99)
[2016-07-23 21:53] LABS: Glucose,Whole Blood 65 mg/dL (75-99)
[2016-07-23 22:18] LABS: Glucose,Whole Blood 62 mg/dL (75-99)
[2016-07-23 23:26] LABS: Glucose,Whole Blood 107 mg/dL (75-99)
[2016-07-24 02:05] LABS: Glucose,Whole Blood 180 mg/dL (75-99)
[2016-07-24 03:30] LABS: Glucose,Whole Blood 187 mg/dL (75-99)
[2016-07-24 07:27] LABS: Glucose,Whole Blood 188 mg/dL (75-99)
[2016-07-24] MEDS: FUROSEMIDE 40 MG TAB PO SCH (07:34)
[2016-07-24] MEDS: LEVOTHYROXINE 75 MCG TAB PO SCH (07:35)
[2016-07-24] MEDS: LOSARTAN 50 MG TAB PO SCH (07:36)
[2016-07-24] MEDS: MULTIVITAMINS, THERA 1 EACH TAB PO SCH (07:36)
[2016-07-24] MEDS: LINAGLIPTIN 5 MG TABLET PO SCH (07:36)
[2016-07-24] MEDS: POTASSIUM CHLORIDE ER 10 MEQ TAB.ER.PRT PO SCH (07:36)
[2016-07-24] MEDS: INSULIN LISPRO (humaLOG) 300 UNIT/3 ML VIAL SQ SCH (07:37)
[2016-07-24] MEDS: AMMONIUM LACTATE 12% LOTION 225 GM BTL TOPICAL SCH (07:37)
[2016-07-24] MEDS: CLOTRIMAZOLE/BETAMETH 1-0.05% CREAM 45 GM TUBE TOPICAL SCH (07:37)
[2016-07-24 08:03] VITALS: BP 130/69; PULSE 52; TEMP 98.2
[2016-07-24 08:11] LABS: Basophils % (A) 1 %; CH 30.1; CHCM 32.8; Eosinophils # (A) 0.2 k/uL (0-0.7); Eosinophils % (A) 4 %; HCT 36.9 % (34.0-46.0); HDW 2.57; HGB 11.7 gm/dL (11.4-16.0); Luc # (Auto) 0.23; Luc % (Auto) 3; Lymphocytes # (A) 0.9 k/uL (1.0-4.8); Lymphocytes % (A) 14 %; MCH 29.3 pg (25.0-35.0); MCHC 31.7 g/dL (31.0-37.0); MCV 92.5 fL (80.0-100.0); Mean Platelet Volume 8.5; Monocytes # (A) 0.6 k/uL (0-1.0); Monocytes % (A) 9 %; Neutrophils # (A) 4.6 k/uL (1.3-7.7); Neutrophils % (A) 70 %; RBC 3.99 m/uL (3.80-5.40); RDW 13.2 % (11.5-15.5); WBC 6.6 k/uL (3.8-10.6); WBC (Perox) 7.14
[2016-07-24 08:13] LABS: Prothrombin Time 19.4 sec (9.0-12.0)
[2016-07-24 08:17] VITALS: RESP 18
[2016-07-24 08:36] LABS: Anion Gap 8 mmol/L; Blood Urea Nitrogen 26 mg/dL (7-17); Calcium 7.4 mg/dL (8.4-10.2); Carbon Dioxide 27 mmol/L (22-30); Chloride 103 mmol/L (98-107); Glucose 192 mg/dL (74-99); Non-African American GFR(MDRD) >60 (>60 ml/min/1.73 sqM); Potassium 4.6 mmol/L (3.5-5.1); Sodium 138 mmol/L (137-145)
[2016-07-24] MEDS ORDERED: CEFUROXIME 250 MG TAB PO SCH (09:00)
--- NOTE | 2016-07-24 09:58 | P.DS ---
Providers Date of admission: 07/20/16 22:16 Attending physician: Vanessa Hogan Primary care physician: [facility] Course: This is an 84-year-old female one of Dr. 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 where she was evaluated in the ER she was found to have a urinary tract infection with the acute kidney injury due to severe dehydration and patient was admitted to the hospital for UTI with sepsis along with acute kidney injury she was placed on IV antibiotic as well as IV fluid resuscitation she was admitted under our service. Today the patient is sitting up in bed in no apparent distress she denies any chest pain, shortness breath, she is a bit stronger, she denies any abdominal pain, she hasn't had a bowel movement, she was seen by physical therapy, her daughter is the bedside as well as her , she continued to have some weakness in both lower extremities. Discharge diagnoses: 1. Acute kidney injury due to prerenal azotemia. 2. E. coli UTI with sepsis. Urine culture showed E. coli, 3. Chronic systolic heart failure. 4. Diabetes mellitus type 2. 5. Chronic atrial fibrillation. . 6. Hypertension and hypertensive cardiovascular disease. 7. Hypothyroidism. 8. Skin rash to the left lower extremity thought to be due to stasis dermatitis and mycotic rash to both feet. 9. Hyperlipidemia. Patient Condition at Discharge: Good Plan - Discharge Summary New Discharge Prescriptions: Ammonium Lactate Lotion [Lac-Hydrin 12% Lotion] 1 applic TOPICAL BID #1 bottle Cefuroxime [Ceftin] 250 mg PO BID #20 tab Clotrimazole/Betameth Cream [Lotrisone] 1 applic TOPICAL BID #30 gram Discharge Medication List Aspirin EC [Ecotrin Low Dose] 81 mg PO AC-SUPPER 11/10/14 [History] Furosemide [Lasix] 40 mg PO QAM 11/10/14 [History] Glucosamine Sulfate 500 mg PO DAILY@1200 11/10/14 [History] L.acidoph,Paracasei, B.lactis [Probiotic] 1 tab PO QAM 11/10/14 [History] Levothyroxine Sodium [Synthroid] 75 mcg PO DAILY 11/10/14 [History] Multivitamins, Thera [Multivitamin] 1 tab PO QAM 11/10/14 [History] Potassium Chloride [K-Tab ER] 10 meq PO QAM 11/10/14 [History] Pravastatin Sodium [Pravachol] 40 mg PO HS 11/10/14 [History] Telmisartan [Micardis] 40 mg PO QAM 11/10/14 [History] Ubidecarenone [Co Q-10] 200 mg PO DAILY@1200 11/10/14 [History] Warfarin [Coumadin] 2.5 mg PO SUMOWETHFRSA 11/10/14 [History] Warfarin [Coumadin] 5 mg PO TU 11/10/14 [History] sitaGLIPtin [Januvia] 100 mg PO QAM 11/10/14 [History] Calcium/Magnesium/Zinc [Oumfnmj-Ozwbmrvki-Xprv Tablet] 1 tab PO AC-SUPPER [History] Cholecalciferol [Vitamin D3] 1,000 unit PO DAILY@1200 07/20/16 [History] Cyanocobalamin [Vitamin B-12] 1,000 mcg PO AC-SUPPER 07/20/16 [History] Glimepiride [Amaryl] 2 mg PO AC-SUPPER 07/20/16 [History] Krill Oil 500 mg PO AC-SUPPER 07/20/16 [History] Ammonium Lactate Lotion [Lac-Hydrin 12% Lotion] 1 applic TOPICAL BID #1 bottle 07/24/16 [Rx] Cefuroxime [Ceftin] 250 mg PO BID #20 tab 07/24/16 [Rx] Clotrimazole/Betameth Cream [Lotrisone] 1 applic TOPICAL BID #30 gram 07/24/16 [ Rx] Glimepiride [Amaryl] 2 mg PO QAM #0 07/24/16 [Rx] Insulin Detemir [Levemir] 32 unit SQ AC-SUPPER #0 07/24/16 [Rx] Follow up Appointment(s)/Referral(s): Fransico Cannon MD [Primary Care Provider] - 1 Week Patient Instructions/Handouts: Urinary Tract Infection in Women (DC), Syncope ( DC), Type 2 Diabetes in Adults (DC) Activity/Diet/Wound Care/Special Instructions: Cardiac, diabetic diet. Fall precautions. [facility] #[phone] Discharge Disposition: HOME WITH HOME HEALTH SERVICES
[2016-07-26] MEDS ORDERED: WARFARIN 5 MG TAB PO SCH (18:00)
== END 2016-07-24 11:49 | disposition home health service (06) | DRG 872 ==
LOC: EC 17:00 → 4MS4W 22:16
PROVIDERS: ADMIT Internal Medicine; ATTEND Internal Medicine
DX: A41.51 Sepsis due to Escherichia coli [E. coli] (principal); N17.9 Acute kidney failure, unspecified; N39.0 Urinary tract infection, site not specified; I50.22 Chronic systolic (congestive) heart failure; I11.0 Hypertensive heart disease with heart failure; E11.42 Type 2 diabetes mellitus with diabetic polyneuropathy; I48.2 Chronic atrial fibrillation; E86.0 Dehydration; B35.3 Tinea pedis; I25.10 Atherosclerotic heart disease of native coronary artery without angina pectoris; E03.9 Hypothyroidism, unspecified; E78.5 Hyperlipidemia, unspecified; I87.2 Venous insufficiency (chronic) (peripheral); K21.9 Gastro-esophageal reflux disease without esophagitis; M19.90 Unspecified osteoarthritis, unspecified site; I95.1 Orthostatic hypotension; M54.9 Dorsalgia, unspecified; Z79.01 Long term (current) use of anticoagulants; Z86.718 Personal history of other venous thrombosis and embolism; Z79.82 Long term (current) use of aspirin; Z79.4 Long term (current) use of insulin; Z79.899 Other long term (current) drug therapy
CPT/HCPCS: 36415; 71020; 74020; 80048; 80053; 80299; 81001; 82550; 82553; 83036; 83605; 83735; 84484; 85025; 85027; 85610; 85730; 87040; 87077; 87086; 87186; 93005; 94760; 96361; 96365; 96375; 99291

== ENCOUNTER → 2016-08-31 | Outpatient (CLI) | payer MEDICARE, OTHER ==
--- NOTE | 2016-08-31 11:59 | WWHP ---
DATE OF SERVICE: 08/31/2016 CHIEF COMPLAINT: The patient is here for her routine gynecologic exam and mammogram. HPI: This is an 86-year-old G5, P4-0-1-4 with an LMP of 1972. The patient is without gynecologic complaints and denies any postmenopausal bleeding. PAST MEDICAL HISTORY: COPD, hypothyroidism, type 2 diabetes, chronic hypertension, some type of blood clot at the time of her colon surgery and history of diverticulosis. MEDICATIONS: 1. Synthroid 75 mcg daily. 2. Micardis 40 mg daily. 3. Furosemide 40 mg daily. 4. Glimepiride 2 mg b.i.d. 5. Januvia 100 mg daily. 6. Aspirin 81 mg daily. 7. Pravastatin 40 mg daily. 8. Levemir as directed. 9. Coumadin 5 mg daily on Monday, , Monday and Monday and 2.5 mg on the other days. 10. She also takes multiple supplements including Probiotics, glucosamine, vitamin B12, multivitamin, CoQ10, calcium with magnesium and zinc and Krill Oil. ALLERGIES: No known drug allergies. 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 REVIEW OF SYSTEMS: Weight has been stable. She denies respiratory, cardiac, or GI problems. She denies maltreatment or falling. : She states she does urinate fairly frequently while she has been on furosemide. She otherwise is without complaints. PHYSICAL EXAM: Blood pressure 103/70. Height 5 feet 6 inches. Weight 220 pounds. Temperature 97.3, pulse 80. This is a well-developed, heavyset white female who is alert and oriented x3 in no acute distress. She does use a walker for ambulation. HEENT is within normal limits. NECK: Supple without mass or thyromegaly. There are moderate number of moles on the neck and throughout the entire body. CHEST AND LUNGS: Clear to auscultation. HEART: Regular rate and rhythm. BREASTS: There is a left breast mass noted at approximately the 2 o'clock position near the axilla measuring approximately 2.5 cm, which is somewhat firm and slightly irregular. This is nontender. There are no other breast masses noted. No breast dimpling is seen on inspection. Axillary exam is negative for adenopathy. BACK: Negative for CVA tenderness. ABDOMEN: Soft, nontender, without palpable masses. Pelvic exam reveals mild to moderate atrophy without lesions. Cervix and vagina have mild to moderate atrophy without lesions. There is no significant prolapse. The uterus is midposition, nongravid size and nontender. There are no palpable adnexal masses or tenderness. Bimanual examination is somewhat limited secondary to her size. Rectovaginal exam is negative for mass or tenderness and is negative for occult blood. EXTREMITIES: Nontender. IMPRESSION: 1. An 86-year-old menopausal female with a left breast mass measuring approximately 2.5 cm at the 2 o'clock position with multiple mammograms in the past showing an asymmetric benign appearing density in the left breast. 2. Normal pelvic examination. 3. Multiple medical problems. PLAN: 1. Pap smear was performed. 2. Self breast examination was discussed. 3. Diagnostic mammogram with left-sided ultrasound will be performed. 4. Will consider referring her to a general surgeon for further evaluation of the left breast mass if imaging studies are suspicious or if changes from previous breast imaging studies. 5. She did receive her flu shot in 03/2016. 6. She will return in one year. DIONNE
--- NOTE | 2016-08-31 13:04 | MM ---
Reason for exam: clinical finding. Last mammogram was performed 1 year and 1 month ago. History: Patient is postmenopausal. Family history of breast cancer in mother at age 90. Benign excisional biopsy of the left breast, 1972. Indicated problem(s): lump or thickening in the left breast. Physical Findings: Nurse Summary: 2.5cm nodule in the left breast at 2 o'clock (Dr. Young). MG 3D Diag Mammo W/Cad SHAN Bilateral CC and MLO view(s) were taken. Prior study comparison: July 29, 2015, bilateral MG screening mammo w CAD. May 06, 2014, bilateral MG screening mammo w CAD. Finding: There are stable typically benign calcifications in both breasts. These results were verbally communicated with the patient and result sheet given to the patient on 08/31/16. ASSESSMENT: Probably benign, BI-RAD 3 RECOMMENDATION: Follow-up diagnostic mammogram of the left breast in 6 months. Manage patient on a clinical basis.
--- NOTE | 2016-08-31 13:07 | USB ---
Reason for exam: clinical finding. History: Patient is postmenopausal. Family history of breast cancer in mother at age 90. Benign excisional biopsy of the left breast, 1972. Indicated problem(s): lump or thickening in the left breast. US Breast Limited LT Left breast ultrasound demonstrates a probable "island" of dense tissue at palpable at 2 o'clock. These results were verbally communicated with the patient and result sheet given to the patient on 08/31/16. ASSESSMENT: Probably benign, BI-RAD 3 RECOMMENDATION: Follow-up diagnostic mammogram and ultrasound of the left breast in 6 months.
== END | disposition home or self-care (01) ==
LOC: WWCWWP 10:38
PROVIDERS: ATTEND Obstetrics & Gynecology
DX: N63 Unspecified lump in breast (principal); I10 Essential (primary) hypertension; E03.9 Hypothyroidism, unspecified; E11.9 Type 2 diabetes mellitus without complications; Z79.84 Long term (current) use of oral hypoglycemic drugs; Z79.01 Long term (current) use of anticoagulants; Z79.82 Long term (current) use of aspirin; Z79.899 Other long term (current) drug therapy; Z79.4 Long term (current) use of insulin
CPT/HCPCS: 76642; G0204; G0279

== ENCOUNTER → 2017-02-07 | Outpatient (CLI) | payer MEDICARE, OTHER ==
[2017-02-07 09:28] LABS: INR 1.1 (<1.2); Prothrombin Time 10.9 sec (9.0-12.0)
== END | disposition home or self-care (01) ==
LOC: LABWHC1 09:03
PROVIDERS: ATTEND Psychiatry & Neurology Pain Medicine
DX: D65 Disseminated intravascular coagulation [defibrination syndrome] (principal)
CPT/HCPCS: 36415; 82565; 84520; 85610

== ENCOUNTER → 2017-03-31 | Outpatient (CLI) | payer MEDICARE, OTHER ==
[~2017-03-31] MED LIST: REGADENOSON 0.4 MG/5 ML SYRINGE IV ONE
--- NOTE | 2017-03-31 12:36 | NM ---
"EXAMINATION TYPE: NM stress lexiscan cardiolite DATE OF EXAM: 03/31/2017 COMPARISON: NONE HISTORY: Shortness of breath, hypertension, and diabetes. TECHNIQUE: After the intravenous administration of 11.0 mCi Tc 99m Sestamibi - Cardiolite resting SP ECT images acquired 45 minutes post injection. The patient received 0.4mg Lexiscan, 29.5 mCi Tc 99m Sestamibi - Stress images obtained [address] injection FINDINGS: Review of stress and rest SPECT images demonstrates no distinct perfusion abnormality. Gated analysi s shows normal wall motion with an estimated left ventricular ejection fraction of 72 %. TID of 1.05. IMPRESSION: 1. Moderate 3 segment reversible defect in the distribution of the left circumflex coronary artery re presenting cardiac ischemia. 2. Estimated left ventricular ejection fraction of 72%. A [employer] message has been communicated to Fransico Cannon MD via the [employer] | Critical Result sy stem on 03/31/2017 12:33 PM, Message ID [id number]."
--- NOTE | 2017-03-31 19:01 | ECHOF ---
Referral Reason:R07.9 chest pain MEASUREMENTS -------- HEIGHT: 165.1 cm WEIGHT: 99.8 kg BP: IVSd: 1.1 cm (0.6 - 1.1) LVIDd: 3.9 cm (3.9 - 5.3) LVPWd: 1.3 cm (0.6 - 1.1) IVSs: 1.3 cm LVIDs: 3.0 cm LVPWs: 1.5 cm Ao Diam: 3.2 cm (2.0 - 3.7) LA Diam: 4.7 cm (2.7 - 3.8) MV E Raphael: 0.67 m/s MV DecT: 302 ms MV A Raphael: 1.03 m/s MV E/A Ratio: 0.65 RAP: 5.00 mmHg RVSP: 13.44 mmHg FINDINGS -------- Undetermined rhythm. This was a techncally difficult study with suboptimal views, , Definity utilized for enhancement of images. There is mild concentric left ventricular hypertrophy. Overall left ventricular systolic function is low-normal with, an EF between 50 - 55 %. The right ventricle is normal in size. The left atrium is moderately dilated. The right atrial size is normal. 1.5MG OF DEFINITY UTLIZED: 2 OR MORE WALL SEGMENTS NOT VISUALIZED. The aortic valve was not well visualized. Mild mitral regurgitation is present. Mild tricuspid regurgitation present. There is no evidence of pulmonary hypertension. The right ventricular systolic pressure, as measured by Doppler, is 13.44mmHg. The pulmonic valve was not well visualized. The aortic root size is normal. Echo free space represents a pericardial fat pad. CONCLUSIONS -------- 1. This was a techncally difficult study with suboptimal views, , Definity utilized for enhancement of images. 2. The pulmonic valve was not well visualized. 3. Echo free space represents a pericardial fat pad. 4. Overall left ventricular systolic function is low-normal with, an EF between 50 - 55 %. 5. The left atrium is moderately dilated. 6. 1.5MG OF DEFINITY UTLIZED: 2 OR MORE WALL SEGMENTS NOT VISUALIZED. 7. The aortic valve was not well visualized. 8. Mild mitral regurgitation is present. 9. Mild tricuspid regurgitation present. 10. There is no evidence of pulmonary hypertension. 11. The right ventricular systolic pressure, as measured by Doppler, is 13.44mmHg. PICCOLOIST: Yesi Bundy RDCS
--- NOTE | 2017-03-31 21:35 | EST ---
EXERCISE STRESS AGE: 86 SEX: Female. HT: 66" WT: 220 pounds PROTOCOL: Lexiscan Cardiolite HEART RATE REST: 71 BLOOD PRESSURE REST: 150/86 MAXIMUM HEART RATE ACHIEVED: 88 MAXIMUM BLOOD PRESSURE: 240/82 INDICATIONS: CLINICAL INFORMATION: Baseline EKG shows sinus rhythm, normal axis, normal intervals. Patient was given intravenous Lexiscan as per protocol. Did not have chest pain or diagnostic ST-segment depression. CONCLUSIONS: 1. Negative stress test by EKG criteria. 2. Cardiolite portion of this stress test will be reported separately. MMODL / IJN: [id number] /
== END | disposition home or self-care (01) ==
LOC: RADECHMAIN 08:31
PROVIDERS: ATTEND Internal Medicine Geriatric Medicine
DX: I08.0 Rheumatic disorders of both mitral and aortic valves (principal); I25.10 Atherosclerotic heart disease of native coronary artery without angina pectoris; M79.4 Hypertrophy of (infrapatellar) fat pad
CPT/HCPCS: 93017; 78452; C8929; A9500; Q9957; J2785; 93306

== ENCOUNTER → 2017-04-06 | Outpatient (CLI) | payer MEDICARE, OTHER ==
[2017-04-06 10:09] LABS: CH 29.6; HCT 42.2 % (34.0-46.0); HGB 13.6 gm/dL (11.4-16.0); MCH 29.9 pg (25.0-35.0); MCHC 32.2 g/dL (31.0-37.0); MCV 92.8 fL (80.0-100.0); RBC 4.54 m/uL (3.80-5.40); RDW 12.7 % (11.5-15.5); WBC 8.6 k/uL (3.8-10.6)
[2017-04-06 10:32] LABS: Potassium 4.5 mmol/L (3.5-5.1)
== END | disposition home or self-care (01) ==
LOC: LABPAT 09:36
PROVIDERS: ATTEND Internal Medicine Interventional Cardiology
DX: Z01.812 Encounter for preprocedural laboratory examination (principal); R94.30 Abnormal result of cardiovascular function study, unspecified
CPT/HCPCS: 36415; 80051; 82565; 84520; 85027

== ENCOUNTER → 2017-04-10 | Day surgery (SDC) | payer MEDICARE, OTHER ==
[2017-04-04 14:39] VITALS: BMI 34.4
[~2017-04-10] MED LIST changes: +ACIDOPH PARACASEI B LACTIS PO SCH; +ALPRAZolam 0.25 MG TAB PO PRN; +AMMONIUM LACTATE 12% LOTION 225 GM BTL TOPICAL SCH; +ASPIRIN 325 MG TAB PO ONE; +CHOLECALCIFEROL 1,000 UNIT TAB PO SCH; +CLOTRIMAZOLE/BETAMETH 1-0.05% CREAM 45 GM TUBE TOPICAL PRN; +CYANOCOBALAMIN 500 MCG TAB PO SCH; +FUROSEMIDE 40 MG TAB PO SCH; +GLIMEPIRIDE 4 MG TAB PO SCH; +HEPARIN SODIUM 1,000 UN/ML (10ML VL) ONE; +INSULIN DETEMIR 100 UNIT/ML 10 ML VIAL SQ SCH; +IODIXANOL 320 MG/ML 100 ML INTRAARTER ONE; +LEVOTHYROXINE 75 MCG TAB PO SCH; +LIDOCAINE 2% INJ 20 MG/ML (20 ML MDV) ONE; +LIDOCAINE 2% INJ 20 MG/ML SQ ONE; +MIDAZOLAM 2 MG/2 ML VIAL IV ONE; +MIDAZOLAM 2 MG/2 ML VIAL ONE; +MULTIVITAMINS, THERA 1 EACH TAB PO SCH; +NON-FORMULARY DRUG (Aspirin Ec 81 MG) PO SCH; +NON-FORMULARY DRUG (Calcium/Magnesium/Zinc [Calcium-Magnesium-Zinc Tablet] 1 TAB) PO SCH; +NON-FORMULARY DRUG (Glucosamine Sulfate 500 MG) PO SCH; +NON-FORMULARY DRUG (Krill Oil [Krill Oil] 500 MG) PO SCH; +NON-FORMULARY DRUG (Potassium Chloride [K-Tab Er] 10 MEQ) PO SCH; +NON-FORMULARY DRUG (Sitagliptin 100 MG) PO SCH; +NON-FORMULARY DRUG (Ubidecarenone [Co Q-10] 200 MG) PO SCH; +PRAVASTATIN SODIUM 40 MG TAB PO SCH; -REGADENOSON 0.4 MG/5 ML SYRINGE IV ONE; +RX INFO: IV CONTRAST WAS GIVEN 1 EACH MISC MISCELLANE PRN; +SODIUM CHLORIDE 0.9% 1,000 ML IV SCH; +SODIUM CHLORIDE 0.9% 1,000 ML in EMPTY BAG 1 BAG IV ONE; +SULFAMETHOX-TMP 800-160MG 1 EACH TAB PO SCH; +TELMISARTAN 40 MG PO SCH; +VERAPAMIL 2.5 MG/ML 2 ML AMP ONE; +VERAPAMIL SYRINGE (5 MG/10 ML) INTRAARTER ONE; +WARFARIN 2.5 MG TAB PO SCH; +diphenhydrAMINE 50 MG/ML 1 ML VIAL IVP ONE; +diphenhydrAMINE 50 MG/ML 1 ML VIAL ONE
[2017-04-10] MEDS: SODIUM CHLORIDE 0.9% 1,000 ML IV SCH ×2 (08:40→08:58)
[2017-04-10 08:47] LABS: Glucose,Whole Blood 115 mg/dL (75-99)
[2017-04-10 08:56] LABS: INR 1.2 (<1.2); Prothrombin Time 11.7 sec (9.0-12.0)
[2017-04-10 08:58] VITALS: RESP 18
--- NOTE | 2017-04-10 12:30 | CC ---
CARDIAC CATHETERIZATION REPORT DATE OF SERVICE: 04/10/2017. PROCEDURE: Left heart catheterization, coronary angiography. PERFORMED BY: Dr. Catalino Brown CLINICAL INFORMATION: Mrs. Hiwot Solares is an 86-year-old lady with a history of hypertension, type 2 diabetes, history of DVT, a question of hydrocephalus, normal pressure hydrocephalus. She was seen by me because of an abnormal stress test with ischemia in circumflex distribution of a moderate extent. She was advised cardiac catheterization. She had a elevated creatinine. She was orally hydrated and also hydrated here and brought in for the procedure electively. PROCEDURE NOTE: Under local anesthesia and strict aseptic precautions, a 6-Marshallese introducer was placed in the right radial artery. I used an Ultimate 1 catheter and with this I performed selective coronary angiography of the left system. I then used a 3.5 JR4, 5- Marshallese catheter and performed selective coronary angiography of the right coronary and also checked LV pressures. LV gram was not performed. The patient's creatinine was elevated and she was well-hydrated. There was no significant obstructive CAD. The catheter was taken out. The sheath was taken out and a TR band applied as per protocol. Saturation of the fingers of the right hand was about 96%. The patient tolerated the procedure well without complications. CARDIAC CATHETERIZATION FINDINGS: The left ventricular end-diastolic pressure was about 14 to 15 mmHg and there was no gradient across the aortic valve. CORONARY ANGIOGRAPHY FINDINGS: RIGHT CORONARY ARTERY: Technically a codominant vessel, has minor irregularities of no more than 30%. Distally gives off a single branch that runs laterally, supplies a fair amount of myocardium. There is no significant disease in the codominant RCA. LEFT MAIN CORONARY ARTERY: This is a long patent disease-free vessel that trifurcates into LAD, circumflex and ramus intermedius. Left main itself is free of significant disease. LEFT ANTERIOR DESCENDING CORONARY ARTERY: A good caliber vessel extends along the ant wall, has minor irregularities supplies a fair amount of myocardium. No significant disease. RAMUS INTERMEDIUS: This is a fair caliber fair distribution disease-free vessel with minimal irregularities. LEFT POSTERIOR CIRCUMFLEX CORONARY ARTERY: This vessel is codominant,no sign disease. Distally two branches, one crosses the crux, minor irregularities but no sign. disease. LEFT VENTRICULOGRAM: This was not performed. FINAL IMPRESSION: This patient has a codominant system. Normal filling pressures. No significant obstructive coronary artery disease. The stress test was probably a false positive one. Findings were discussed with the patient, her daughter and . I expect that she will be discharged later on today and I will see her in the office in the next 3 to 4 days. I will discontinue the beta anderson, but continue all her other medications including the Coumadin. She has history of DVT for which she takes Coumadin. Moderate conscious sedation was provided for a total duration of 24 minutes. JAMEY / LILLIANN: [id number] / DIONNE
--- NOTE | 2017-04-10 12:33 | LTR ---
April 10, [address] Cannon: Thank you for the opportunity to participate in the care of Mrs. Solares. Please find enclosed my cardiac cath report for your records. She has minor noncritical disease with a codominant system and normal filling pressures. I used only 45 mL of contrast. I will discontinue the beta anderson. She does not have any significant obstructive CAD that requires intervention. Continued medical therapy with risk factor modification is advised and she can be discharged later on today. Thank you for your referral and please call for questions. With kindest regards, Sincerely yours, Alla Brown MD MMJOAOL / LILLIANN: [id number] /
[2017-04-10 17:36] VITALS: BP 121/85; PULSE 46; TEMP 98.4
== END ==
LOC: CATHCVL 08:05
PROVIDERS: ATTEND Internal Medicine Interventional Cardiology
DX: R94.39 Abnormal result of other cardiovascular function study (principal); I25.110 Atherosclerotic heart disease of native coronary artery with unstable angina pectoris; I10 Essential (primary) hypertension; E11.9 Type 2 diabetes mellitus without complications; E78.00 Pure hypercholesterolemia, unspecified; E66.01 Morbid (severe) obesity due to excess calories; Z68.35 Body mass index [BMI] 35.0-35.9, adult; I73.9 Peripheral vascular disease, unspecified; G91.9 Hydrocephalus, unspecified; Z86.718 Personal history of other venous thrombosis and embolism; Z82.49 Family history of ischemic heart disease and other diseases of the circulatory system; Z79.01 Long term (current) use of anticoagulants; Z79.84 Long term (current) use of oral hypoglycemic drugs; Z79.82 Long term (current) use of aspirin; Z79.4 Long term (current) use of insulin; Z79.899 Other long term (current) drug therapy
CPT/HCPCS: 93458; 85610; 99152; C1769; C1894; J2001; J2250; J1200; Q9967; J1644

== ENCOUNTER → 2017-10-25 | Outpatient (CLI) | payer MEDICARE, OTHER ==
--- NOTE | 2017-10-25 10:53 | P.HPOB ---
History of Present Illness H&P Date: 10/25/17 Chief Complaint: The patient is here for her routine gynecologic exam and mammogram. This is an 87-year-old with an LMP of 1973. The patient is without gynecologic complaints and denies any postmenopausal bleeding. Her mammogram done on 08/31/2016 recommended a diagnostic mammogram with ultrasound of the left breast and 6 months which was not done by the patient. She denies feeling any changes of the breasts. Review of Systems Patient has lost 10 pounds over the last year. She denies respiratory, cardiac , or G.I. problems. She denies maltreatment are falling. : she has occasional urinary leakage was coughing and sneezing which she states is not a big problem. Past Medical History Past Medical History: Diabetes Mellitus (Type II diabetes), Deep Vein Thrombosis (DVT), Hyperlipidemia, Hypertension, Osteoarthritis (OA), Thyroid Disorder (Hypothyroid) Additional Past Medical History / Comment(s): back pain, diverticulitis History of Any Multi-Drug Resistant Organisms: None Reported Past Surgical History: Adenoidectomy, Bowel Resection, Tonsillectomy Additional Past Surgical History / Comment(s): colostomy with reversal, DVT. Colonoscopy and 2013 this was her 2nd one. Past Anesthesia/Blood Transfusion Reactions: No Reported Reaction Past Psychological History: No Psychological Hx Reported Smoking Status: Never smoker Past Alcohol Use History: None Reported Past Drug Use History: None Reported Additional History: She has been since 1956. She is retired. - Past Family History Father History Unknown: Yes Family Medical History: No Reported History Mother Family Medical History: Cancer (Breast cancer age 90.) Brother(s) Family Medical History: No Reported History Sister(s) Family Medical History: No Reported History Daughter(s) Family Medical History: No Reported History Son(s) Family Medical History: No Reported History Medications and Allergies Home Medications and Allergies Comment(s): Synthroid 75 g daily, Januvia 100 mg daily, micarditis 40 mg daily, 40 semi 40 mg daily, glimepiride 4 mg in the a.m., glimepiride 2 mg in the evening, aspirin 81 mg daily pravastatin 40 mg daily Levemir 30 units in the a.m. and 50 units in the p.m., Coumadin 2.5 mg daily, and oxybutynin 15 mg daily. She also takes probiotics, glucosamine, vitamin B12, potassium chloride, multivitamin, cranberry supplement, CoQ10,vitamin D, and krill oil supplement. Home Medications Medication Instructions Recorded Confirmed Type Aspirin EC [Ecotrin Low Dose] 81 mg PO DAILY 11/10/14 04/10/17 History Furosemide [Lasix] 40 mg PO QAM 11/10/14 04/10/17 History Glucosamine Sulfate 500 mg PO DAILY@1200 11/10/14 04/10/17 History L.acidoph,Paracasei, B.lactis 1 tab PO QAM 11/10/14 04/10/17 History [Probiotic] Levothyroxine Sodium [Synthroid] 75 mcg PO DAILY 11/10/14 04/10/17 History Multivitamins, Thera [Multivitamin 1 tab PO QA 11/10/14 04/10/17 History (formulary)] Potassium Chloride [K-Tab ER] 10 meq PO QA 11/10/14 04/10/17 History Pravastatin Sodium [Pravachol] 40 mg PO HS 11/10/14 04/10/17 History Telmisartan [Micardis] 40 mg PO QA 11/10/14 04/10/17 History Ubidecarenone [Co Q-10] 200 mg PO DAILY@1200 11/10/14 04/10/17 History Warfarin [Coumadin] 2.5 mg PO DAILY 11/10/14 04/10/17 History sitaGLIPtin [Januvia] 100 mg PO QA 11/10/14 04/10/17 History Calcium/Magnesium/Zinc 1 tab PO AC-SUPPER 07/20/16 04/10/17 History [Cuhfoap-Trjahrmky-Pesx Tablet] Cholecalciferol [Vitamin D3] 1,000 unit PO DAILY@1200 07/20/16 04/10/17 History Cyanocobalamin [Vitamin B-12] 1,000 mcg PO 1200 07/20/16 04/10/17 History Glimepiride [Amaryl] 2 mg PO AC-SUPPER 07/20/16 04/10/17 History Krill Oil 500 mg PO AC-SUPPER 07/20/16 04/10/17 History Ammonium Lactate Lotion 1 applic TOPICAL BID #1 bottle 07/24/16 04/10/17 Rx [Lac-Hydrin 12% Lotion] Glimepiride [Amaryl] 2 mg PO QAM #0 07/24/16 04/10/17 Rx Clotrimazole/Betameth Cream 1 applic TOPICAL BID PRN 04/04/17 04/10/17 History [Lotrisone] Insulin Detemir [Levemir] 20 unit SQ AC-BRKFST 04/04/17 04/10/17 History Insulin Detemir [Levemir] 40 unit SQ HS 04/04/17 04/10/17 History Sulfamethoxazole/Trimethoprim 1 each PO DAILY 04/04/17 04/10/17 History [Bactrim DS 800-160 mg] Allergies Allergy/AdvReac Type Severity Reaction Status Date / Time No Known Allergies Allergy Verified 04/10/17 08:32 Exam - Vital Signs Vital signs: Blood pressure 126/62, height 5'6", weight 210 pounds, BMI 34, temperature 97.1 , pulse 63. This is a well-developed well-nourished white female who is alert and oriented times 3 in no acute distress. HEENT: Within normal limits. NECK: Supple without mass or thyromegaly. CHEST AND LUNGS: mild prolonged expiration, otherwise clear to auscultation. HEART: Regular rate and rhythm. BREASTS: there is a palpable left breast mass at the 2 o'clock position measuring 2.5 cm. This is somewhat firm and nontender. There are no other breast masses or tenderness. A marker was placed over the left breast mass. AXILLARY EXAM: Negative for adenopathy. BACK: Negative for CVA tenderness. ABDOMEN: obese, soft, nontender. There is then left abdominal wall hernia approximately 6 cm in size lateral to the umbilicus beneath a scar. This is soft and nontender. PELVIC EXAM: Normal external genitalia with moderate atrophy. Cervix and vagina appear normal with moderate atrophy. There is no unusual discharge. There is no evidence of prolapse. The uterus is midposition, nongravid size and nontender. There are no palpable adnexal masses or tenderness. Bimanual examination is somewhat limited secondary to her size. RECTAL EXAM: vaginal exam is negative for mass or tenderness and is negative for occult blood. EXTREMITIES: Nontender. IMPRESSION: 1. 87-year-old menopausal female with left breast mass which is stable compared to her exam 14 months ago. The patient did not complete the left breast imaging that was recommended after her last mammogram. 2. Unremarkable pelvic exam. 3. Multiple medical problems. PLAN: 1. Pap smear was deferred since she had normal one last year. 2. Self breast awareness was discussed. 3. Diagnostic bilateral mammogram will be done today with left breast ultrasound. 4. Bone density screening will be done today. Osteoporosis prevention was discussed. 5. She did receive her flu shot last fall. 6. She will return in one year.
--- NOTE | 2017-10-25 11:47 | MM ---
Reason for exam: additional evaluation requested from prior study. Last mammogram was performed 1 year and 2 months ago. History: Patient is postmenopausal. Family history of breast cancer in mother at age 90. Benign excisional biopsy of the left breast, 1972. Physical Findings: Nurse Summary: 2.5cm nodule in the left breast at 2 o'clock (Dr. Young). MG 3D Diag Mammo W/Cad SHAN Bilateral CC and MLO view(s) were taken. Prior study comparison: August 31, 2016, bilateral MG 3d diag mammo w/cad SHAN. July 29, 2015, bilateral MG screening mammo w CAD. The breast tissue is heterogeneously dense. This may lower the sensitivity of mammography. Benign calcifications bilaterally. Post biopsy change on the left breast. Focal asymmetry at site of palpable in the upper outer quadrant on the left, stable back to 2011. These results were verbally communicated with the patient and result sheet given to the patient on 10/25/17. ASSESSMENT: Benign, BI-RAD 2 RECOMMENDATION: Routine screening mammogram of both breasts in 1 year.
--- NOTE | 2017-10-25 11:49 | USB ---
Reason for exam: additional evaluation requested from prior study. History: Patient is postmenopausal. Family history of breast cancer in mother at age 90. Benign excisional biopsy of the left breast, 1972. US Breast LT Left complete breast ultrasound includes all four quadrants, the retroareolar region and axilla. Finding demonstrates a 11 x 8 x 12mm cystic cluster within dense tissue at 2 o'clock. This is mammographically stable back to 2011. These results were verbally communicated with the patient and result sheet given to the patient on 10/25/17. ASSESSMENT: Benign, BI-RAD 2 RECOMMENDATION: Routine screening mammogram of both breasts in 1 year.
--- NOTE | 2017-10-25 12:18 | BD ---
EXAMINATION TYPE: Axial Bone Density DATE OF EXAM: 10/25/2017 COMPARISON: NONE CLINICAL HISTORY: Postmenopausal female. Osteoporosis screening. Height: 62.5 IN Weight: 208 LBS FRAX RISK QUESTIONS: Alcohol (3 or more units per day): NO Family History (Parent hip fracture): NO Glucocorticoids (More than 3mos): NO (Ex: prednisone, prednisolone, methylprednisolone, dexamethasone, and hydrocortisone). History of Fracture in Adulthood: NO Secondary Osteoporosis: 1. Type 1 Diabetes: NO 2. Hyperthyroidism: NO 3. Menopause before 45: AGE 52 4. Malnutrition: NO 5. Chronic liver disease: NO Rheumatoid Arthritis: NO Current Tobacco Use: NO RISK FACTORS HISTORY OF: Active: LIMITED Postmenopausal woman: AGE 52 Lost more than 2 inches in height since high school: YES 4" MEDICATIONS: Thyroid Medications: YES Which medication: Synthroid How Lon + YEARS Additional Medications: SYNTHROID, PT DOESN'T KNOW EXAM MEASUREMENTS: Bone mineral densitometry was performed using the [employer] System. Bone mineral density as measured about the Lumbar spine is: ----- L1-L4(G/cm2): 1.211 T Score Values are as follows: ----- L2: -0.3 ----- L3: 0.6 ----- L4: -1.2 ----- L1-L4: 0.3 Bone mineral density BASELINE Bone mineral density about the R hip (g/cm2): 0.746 Bone mineral density about the L hip (g/cm2): 0.765 T Score values are as follows: -----R Neck: -2.1 -----L Neck: -2.0 -----R Total: -1.0 -----L Total: -1.3 Bone mineral density BASELINE IMPRESSION: Osteopenia (T Score between -2.5 and -1) with regards to the bilateral femurs. There is slightly increased risk of fracture and the patient may be considered for treatment. Re-Screen 2-5 years. NOTE: T-SCORE=SD OF THE YOUNG ADULT MEAN.
== END | disposition home or self-care (01) ==
LOC: WWCWWP 09:29
PROVIDERS: ATTEND Obstetrics & Gynecology
DX: N63.0 Unspecified lump in unspecified breast (principal); R92.8 Other abnormal and inconclusive findings on diagnostic imaging of breast; M85.851 Other specified disorders of bone density and structure, right thigh; M85.852 Other specified disorders of bone density and structure, left thigh; Z78.0 Asymptomatic menopausal state
CPT/HCPCS: 77080; 77066; 76641; G0279; 77062

== ENCOUNTER 2018-04-30 09:34 | Observation (INO) | payer MEDICARE, OTHER ==
--- NOTE | 2018-04-30 09:52 | ED ---
Extremity Problem HPI - General Chief complaint: Extremity Problem,Nontraumatic Stated complaint: arm pain Time Seen by Provider: 04/30/18 09:34 Source: patient, EMS, RN notes reviewed, old records reviewed Mode of arrival: EMS Limitations: no limitations - History of Present Illness Initial comments: This 87-year-old female who was brought in by EMS because of right arm pain. She states she's had since this morning she states the pain is going down her right arm especially around the elbow area. She has no place a fall for paramedics she was sitting in a somewhat contorted position in a chair. There was a smell of urine in the house and on the patient. She denies any fevers chills nausea vomiting sweats or other symptoms she believes she is eating well. No other complaints at this time MD Complaint: extremity pain - Related Data Home Medications Medication Instructions Recorded Confirmed Aspirin EC [Ecotrin Low Dose] 81 mg PO W/SUPPER 11/10/14 04/30/18 Furosemide [Lasix] 20 mg PO QAM 11/10/14 04/30/18 L.acidoph,Paracasei, B.lactis 1 tab PO QAM 11/10/14 04/30/18 [Probiotic] Levothyroxine Sodium [Synthroid] 75 mcg PO DAILY 11/10/14 04/30/18 Multivitamins, Thera [Multivitamin 1 tab PO QAM 11/10/14 04/30/18 (formulary)] Potassium Chloride [K-Tab ER] 10 meq PO Q48H 11/10/14 04/30/18 Pravastatin Sodium [Pravachol] 40 mg PO W/SUPPER 11/10/14 04/30/18 Telmisartan [Micardis] 40 mg PO QAM 11/10/14 04/30/18 Ubidecarenone [Co Q-10] 200 mg PO DAILY@1200 11/10/14 04/30/18 Warfarin [Coumadin] 2.5 mg PO W/SUPPER 11/10/14 04/30/18 sitaGLIPtin [Januvia] 100 mg PO QAM 11/10/14 04/30/18 Calcium/Magnesium/Zinc 1 tab PO W/SUPPER 07/20/16 04/30/18 [Ofqdphd-Reqymznxf-Rmoc Tablet] Cholecalciferol [Vitamin D3] 1,000 unit PO DAILY@1200 02/01/17 11/12/18 Cyanocobalamin [Vitamin B-12] 1,000 mcg PO DAILY@1200 07/20/16 04/30/18 Glimepiride [Amaryl] 2 mg PO AC-BID 07/20/16 04/30/18 Krill Oil 500 mg PO W/SUPPER 07/20/16 04/30/18 Cranberry Fruit Extract [Cranberry] 500 mg PO DAILY 04/30/18 04/30/18 Insulin Glargine [Lantus] 35 unit SQ DAILY 04/30/18 04/30/18 Insulin Glargine [Lantus] 50 unit SQ W/SUPPER 04/30/18 04/30/18 Mirabegron [Myrbetriq] 50 mg PO DAILY 04/30/18 04/30/18 Allergies Allergy/AdvReac Type Severity Reaction Status Date / Time No Known Allergies Allergy Verified 04/30/18 10:00 Review of Systems ROS Statement: Those systems with pertinent positive or pertinent negative responses have been documented in the HPI. ROS Other: All systems not noted in ROS Statement are negative. Past Medical History Past Medical History: Diabetes Mellitus, Deep Vein Thrombosis (DVT), Hyperlipidemia, Hypertension, Osteoarthritis (OA), Thyroid Disorder Additional Past Medical History / Comment(s): back pain, diverticulitis History of Any Multi-Drug Resistant Organisms: None Reported Past Surgical History: Adenoidectomy, Bowel Resection, Tonsillectomy Additional Past Surgical History / Comment(s): colostomy with reversal, DVT. Colonoscopy and 2013 this was her 2nd one. Past Anesthesia/Blood Transfusion Reactions: No Reported Reaction Past Psychological History: No Psychological Hx Reported Smoking Status: Never smoker Past Alcohol Use History: None Reported Past Drug Use History: None Reported - Past Family History Father History Unknown: Yes Family Medical History: No Reported History Mother Family Medical History: Cancer (Breast cancer age 90.) Additional Family Medical History / Comment(s): BREAST CANCER Brother(s) Family Medical History: No Reported History Sister(s) Family Medical History: No Reported History Daughter(s) Family Medical History: No Reported History Son(s) Family Medical History: No Reported History General Exam - General Exam Comments Initial Comments: This is a well-developed well-nourished awake alert oriented 3 female Limitations: no limitations General appearance: alert, anxious Head exam: Present: atraumatic, normocephalic, normal inspection Eye exam: Present: normal appearance, PERRL, EOMI. Absent: scleral icterus, conjunctival injection, periorbital swelling ENT exam: Present: mucous membranes dry Neck exam: Present: normal inspection, full ROM. Absent: tenderness, meningismus, lymphadenopathy Respiratory exam: Present: normal lung sounds bilaterally. Absent: respiratory distress, wheezes, rales, rhonchi, stridor Cardiovascular Exam: Present: regular rate, normal rhythm, normal heart sounds. Absent: systolic murmur, diastolic murmur, rubs, gallop, clicks GI/Abdominal exam: Present: soft, normal bowel sounds. Absent: distended, tenderness, guarding, rebound, rigid Extremities exam: Present: normal inspection, full ROM, tenderness (Tennis palpation of the lateral proximal right forearm no step-off or crepitation), normal capillary refill. Absent: pedal edema, joint swelling, calf tenderness Back exam: Present: normal inspection Neurological exam: Present: alert, oriented X3, CN II-XII intact Psychiatric exam: Present: normal affect, normal mood Skin exam: Present: warm, dry, intact, normal color. Absent: rash Course Vital Signs 04/30/18 04/30/18 04/30/18 09:36 11:30 12:00 Temperature 98.0 F Pulse Rate 68 82 82 Respiratory 18 16 18 Rate Blood Pressure 130/96 140/88 164/93 O2 Sat by Pulse 98 95 92 L Oximetry 04/30/18 15:00 Temperature Pulse Rate Respiratory Rate Blood Pressure 139/84 O2 Sat by Pulse Oximetry Medical Decision Making - Lab Data Result diagrams: 04/30/18 09:55 04/30/18 09:55 Lab Results 04/30/18 04/30/18 04/30/18 Range/Units 09:55 09:55 09:55 WBC 14.3 H (3.8-10.6) k/uL RBC 4.83 (3.80-5.40) m/uL Hgb 14.2 (11.4-16.0) gm/dL Hct 43.7 (34.0-46.0) % MCV 90.6 (80.0-100.0) fL MCH 29.5 (25.0-35.0) pg MCHC 32.6 (31.0-37.0) g/dL RDW 12.8 (11.5-15.5) % Plt Count 312 (150-450) k/uL Neutrophils % 87 % Lymphocytes % 5 % Monocytes % 6 % Eosinophils % 1 % Basophils % 0 % Neutrophils # 12.4 H (1.3-7.7) k/uL Lymphocytes # 0.7 L (1.0-4.8) k/uL Monocytes # 0.9 (0-1.0) k/uL Eosinophils # 0.1 (0-0.7) k/uL Basophils # 0.0 (0-0.2) k/uL PT (9.0-12.0) sec INR (<1.2) APTT (22.0-30.0) sec D-Dimer (<0.60) mg/L FEU Sodium 140 (137-145) mmol/L Potassium 4.7 (3.5-5.1) mmol/L Chloride 100 (98-107) mmol/L Carbon Dioxide 27 (22-30) mmol/L Anion Gap 13 mmol/L BUN 32 H (7-17) mg/dL Creatinine 1.13 H (0.52-1.04) mg/dL Est GFR (CKD-EPI)AfAm 51 (>60 ml/min/1.73 sqM) Est GFR (CKD-EPI)NonAf 45 (>60 ml/min/1.73 sqM) Glucose 222 H (74-99) mg/dL Calcium 9.8 (8.4-10.2) mg/dL Magnesium 2.0 (1.6-2.3) mg/dL Total Bilirubin 1.0 (0.2-1.3) mg/dL AST 40 H (14-36) U/L ALT 53 H (9-52) U/L Alkaline Phosphatase 134 H (38-126) U/L Total Creatine Kinase 33 (30-135) U/L CK-MB (CK-2) 0.4 (0.0-2.4) ng/mL CK-MB (CK-2) Rel Index 1.2 Troponin I <0.012 (0.000-0.034) ng/mL NT-Pro-B Natriuret Pep pg/mL Total Protein 7.8 (6.3-8.2) g/dL Albumin 4.0 (3.5-5.0) g/dL Amylase 68 (30-110) U/L Lipase 128 (23-300) U/L Urine Color Urine Appearance (Clear) Urine pH (5.0-8.0) Ur Specific [place] (1.001-1.035) Urine Protein (Negative) Urine Glucose (UA) (Negative) Urine Ketones (Negative) Urine Blood (Negative) Urine Nitrite (Negative) Urine Bilirubin (Negative) Urine Urobilinogen (<2.0) mg/dL Ur Leukocyte Esterase (Negative) Urine RBC (0-5) /hpf Urine WBC (0-5) /hpf Ur Squamous Epith Cells (0-4) /hpf Urine Bacteria (None) /hpf Urine Mucus (None) /hpf 04/30/18 04/30/18 04/30/18 Range/Units 09:55 09:55 12:00 WBC (3.8-10.6) k/uL RBC (3.80-5.40) m/uL Hgb (11.4-16.0) gm/dL Hct (34.0-46.0) % MCV (80.0-100.0) fL MCH (25.0-35.0) pg MCHC (31.0-37.0) g/dL RDW (11.5-15.5) % Plt Count (150-450) k/uL Neutrophils % % Lymphocytes % % Monocytes % % Eosinophils % % Basophils % % Neutrophils # (1.3-7.7) k/uL Lymphocytes # (1.0-4.8) k/uL Monocytes # (0-1.0) k/uL Eosinophils # (0-0.7) k/uL Basophils # (0-0.2) k/uL PT 10.3 (9.0-12.0) sec INR 1.1 (<1.2) APTT 24.6 (22.0-30.0) sec D-Dimer 1.67 H (<0.60) mg/L FEU Sodium (137-145) mmol/L Potassium (3.5-5.1) mmol/L Chloride (98-107) mmol/L Carbon Dioxide (22-30) mmol/L Anion Gap mmol/L BUN (7-17) mg/dL Creatinine (0.52-1.04) mg/dL Est GFR (CKD-EPI)AfAm (>60 ml/min/1.73 sqM) Est GFR (CKD-EPI)NonAf (>60 ml/min/1.73 sqM) Glucose (74-99) mg/dL Calcium (8.4-10.2) mg/dL Magnesium (1.6-2.3) mg/dL Total Bilirubin (0.2-1.3) mg/dL AST (14-36) U/L ALT (9-52) U/L Alkaline Phosphatase (38-126) U/L Total Creatine Kinase (30-135) U/L CK-MB (CK-2) (0.0-2.4) ng/mL CK-MB (CK-2) Rel Index Troponin I (0.000-0.034) ng/mL NT-Pro-B Natriuret Pep 303 pg/mL Total Protein (6.3-8.2) g/dL Albumin (3.5-5.0) g/dL Amylase (30-110) U/L Lipase (23-300) U/L Urine Color Yellow Urine Appearance Clear (Clear) Urine pH 6.5 (5.0-8.0) Ur Specific [place] 1.018 (1.001-1.035) Urine Protein 1+ H (Negative) Urine Glucose (UA) 2+ H (Negative) Urine Ketones Negative (Negative) Urine Blood Negative (Negative) Urine Nitrite Negative (Negative) Urine Bilirubin Negative (Negative) Urine Urobilinogen <2.0 (<2.0) mg/dL Ur Leukocyte Esterase Small H (Negative) Urine RBC 1 (0-5) /hpf Urine WBC 12 H (0-5) /hpf Ur Squamous Epith Cells <1 (0-4) /hpf Urine Bacteria Rare H (None) /hpf Urine Mucus Rare H (None) /hpf - EKG Data -: EKG Interpreted by Me (EKG shows normal sinus rhythm a 76. Interval 150 to QRS 84 QT since QTC 36) Disposition Clinical Impression: Failure to thrive in adult, Dehydration, Generalized weakness, Chronic renal insufficiency Disposition: ADMITTED IP TO THIS [facility] Condition: Stable Referrals: Fransico Cannon MD [Primary Care Provider] - 1-2 days
[2018-04-30 10:25] LABS: Basophils % (A) 0 %; Eosinophils # (A) 0.1 k/uL (0-0.7); Eosinophils % (A) 1 %; HCT 43.7 % (34.0-46.0); HGB 14.2 gm/dL (11.4-16.0); Lymphocytes # (A) 0.7 k/uL (1.0-4.8); Lymphocytes % (A) 5 %; MCH 29.5 pg (25.0-35.0); MCHC 32.6 g/dL (31.0-37.0); MCV 90.6 fL (80.0-100.0); Mean Platelet Volume 7.7; Monocytes # (A) 0.9 k/uL (0-1.0); Monocytes % (A) 6 %; Neutrophils # (A) 12.4 k/uL (1.3-7.7); Neutrophils % (A) 87 %; Platelet Count 312 k/uL (150-450); RBC 4.83 m/uL (3.80-5.40); RDW 12.8 % (11.5-15.5); WBC 14.3 k/uL (3.8-10.6)
[2018-04-30 10:42] LABS: Calcium 9.8 mg/dL (8.4-10.2); Potassium 4.7 mmol/L (3.5-5.1); Total Protein 7.8 g/dL (6.3-8.2)
--- NOTE | 2018-04-30 10:52 | XR ---
Limited right elbow HISTORY: Pain 2 views of the right elbow, correlation to previous exam dated 11/10/2014 Views are nonstandard. Osteoarthritic changes present, there is loss of joint space, marginal spurrin g, subchondral sclerosis. Alignment and bone mineralization are normal. No fracture or dislocation ev ident. Difficult to exclude effusion. IMPRESSION: Osteoarthritis and limitations as described.
[2018-04-30 10:55] LABS: Creatine Kinase 33 U/L (30-135)
--- NOTE | 2018-04-30 10:56 | XR ---
EXAMINATION TYPE: XR chest 2V DATE OF EXAM: 04/30/2018 COMPARISON: Previous chest x-ray 07/20/2016 HISTORY: Chest pain TECHNIQUE: Frontal and lateral views of the chest are obtained. FINDINGS: There is no focal air space opacity, pleural effusion, or pneumothorax seen. The cardiac silhouette size is stable, enlarged. There is evidence of old granulomatous disease as seen on prior exam. The osseous structures are intact. There are overlying cardiac leads. The aorta is dense. IMPRESSION: No acute cardiopulmonary process. Stable cardiomegaly.
[2018-04-30 10:59] LABS: INR 1.1 (<1.2); Partial Thromboplastin Time 24.6 sec (22.0-30.0); Prothrombin Time 10.3 sec (9.0-12.0)
[2018-04-30 11:05] LABS: D-Dimer 1.67 mg/L FEU (<0.60)
[2018-04-30 11:07] LABS: Creatine Kinase MB 0.4 ng/mL (0.0-2.4); Troponin I <0.012 ng/mL (0.000-0.034)
[2018-04-30 12:20] LABS: Appearance,Urine Clear (Clear); Bacteria,Urine Rare /hpf; Bilirubin,Urine Negative (Negative); Blood,Urine Negative (Negative); Color,Urine Yellow; Glucose,Urine (UA) 2+ (Negative); Ketones,Urine Negative (Negative); Leukocyte Esterase,Urine Small (Negative); Mucus,Urine Rare /hpf; Nitrite,Urine Negative (Negative); PH, Urine 6.5 (5.0-8.0); Protein,Urine 1+ (Negative); RBC,Urine 1 /hpf (0-5); Specific Gravity,Urine 1.018 (1.001-1.035); Squamous Epithelial Cell,Urine <1 /hpf (0-4); Urobilinogen,Urine <2.0 mg/dL (<2.0); WBC,Urine 12 /hpf (0-5)
--- NOTE | 2018-04-30 15:40 | CT ---
EXAMINATION TYPE: CT brain wo con DATE OF EXAM: 04/30/2018 COMPARISON: 12/03/2014. INDICATION: Altered mental status. DLP: 2450.4 mGycm, Automated exposure control for dose reduction was used. CONTRAST: None CT of the brain is performed utilizing 3 mm thick sections through the posterior fossa and 3 mm thick sections through the remaining calvarium. Study is performed within 24 hours of arrival to the hosp [facility]. No abnormal hyperdensity is present to suggest an acute intracranial hemorrhage. No mass lesion is evident. Best-white matter differentiation is somewhat limited. No acute infarcts are evident. There is a small hypodensity within the posterior basal ganglion. Smal l lacunar infarct could be considered. Ventricles and sulci are prominent for the patient age. Temporal horn rounded is not evident. Paranasal sinuses and mastoid air cells within the [id number]-[id number] are clear. IMPRESSIONS: 1. Atrophy with periventricular white matter changes. There is limited best-white matter differenti ation.
[2018-04-30] MEDS ORDERED: NALOXONE 0.4 MG/ML 1 ML VIAL IV PRN (16:03)
[2018-04-30] MEDS: SODIUM CHLORIDE 0.9% 1,000 ML IV SCH (17:11)
[2018-04-30] MEDS: ACETAMINOPHEN TAB 325 MG TAB PO PRN (17:13)
[2018-04-30 17:27] LABS: Glucose,Whole Blood 330 mg/dL (75-99)
[2018-04-30] MEDS ORDERED: NON-FORMULARY DRUG (Calcium/Magnesium/Zinc [Calcium-Magnesium-Zinc Tablet] 1 TAB) PO SCH (17:30)
[2018-04-30] MEDS ORDERED: NON-FORMULARY DRUG (Krill Oil [Krill Oil] 500 MG) PO SCH (17:30)
[2018-04-30] MEDS: INSULIN DETEMIR 100 UNIT/ML 10 ML VIAL SQ SCH (17:43)
[2018-04-30] MEDS: GLIMEPIRIDE 2 MG TAB PO SCH (17:43)
[2018-04-30] MEDS: ASPIRIN 81 MG PO SCH (17:43)
[2018-04-30] MEDS: PRAVASTATIN SODIUM 40 MG TAB PO SCH (17:43)
[2018-04-30] MEDS ORDERED: WARFARIN 2.5 MG TAB PO SCH (18:00)
[2018-04-30 21:02] LABS: Glucose,Whole Blood 359 mg/dL (75-99)
[2018-05-01] MEDS: SODIUM CHLORIDE 0.9% 1,000 ML IV SCH ×2 (02:47→17:27)
[2018-05-01 05:33] LABS: Hemoglobin A1C 10.7 % (4.0-6.0)
--- NOTE | 2018-05-01 05:46 | P.HPIM ---
History of Present Illness H&P Date: 04/30/18 Chief Complaint: right arm pain. 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 after talking to her daughter she stated that she is really here for placement and she has been working on it , patient usually has a nurse aid to assist in shower, and when the EMS personnel get there there was a urine smell in the apartment. Review of Systems Constitutional: Reports fatigue, Reports weakness, Denies anorexia, Denies chronic headaches Eyes: denies blurred vision, denies bulging eye, denies decreased vision Ears: bilateral: decreased hearing Ears, nose, mouth and throat: Denies dysphagia, Denies neck lump, Denies swelling in throat, Denies sore throat Cardiovascular: Reports decreased exercise tolerance, Reports dyspnea on exertion, Reports high blood pressure, Denies chest pain, Denies lightheadedness , Denies rapid heart beat, Denies shortness of breath, Denies syncope Respiratory: Denies congestion, Denies cough with sputum, Denies home oxygen, Denies sleep apnea, Denies snoring, Denies wheezing Gastrointestinal: Denies abdominal pain, Denies bloating, Denies change in bowel habits, Denies heartburn, Denies melena, Denies nausea, Denies vomiting Genitourinary: Denies dysuria, Denies hematuria Menstruation: Reports postmenopausal Musculoskeletal: Reports frequent falls, Reports gait dysfunction Musculoskeletal: right: hand pain, hand stiffness, hand swelling, shoulder pain , shoulder stiffness, shoulder swelling, wrist pain, wrist stiffness, wrist swelling, absent: ankle pain, ankle stiffness, ankle swelling, elbow pain, elbow stiffness, elbow swelling, foot pain, foot stiffness, foot swelling, hip pain, hip stiffness, hip swelling, knee pain, knee stiffness, knee swelling Integumentary: Denies pruritus, Denies rash Neurological: Reports gait dysfunction, Reports weakness Psychiatric: Denies anxiety, Denies depression Past Medical History Past Medical History: Diabetes Mellitus, Deep Vein Thrombosis (DVT), Hyperlipidemia, Hypertension, Osteoarthritis (OA), Thyroid Disorder Additional Past Medical History / Comment(s): back pain, diverticulitis, neuropathy,uti's, upper dental bridge, 2017 abn stress test went for cath no stents. per 2015 dicated h&p it mentioned hx of afib and chf-pt has no knowledge of this. 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 History of Any Multi-Drug Resistant Organisms: None Reported Past Surgical History: Adenoidectomy, Bowel Resection, Tonsillectomy Additional Past Surgical History / Comment(s): colostomy with reversal, DVT. Colonoscopy and 2012 this was her 2nd one. past rt fac skin bx pt stated no cancer Past Anesthesia/Blood Transfusion Reactions: No Reported Reaction Smoking Status: Never smoker - Past Family History Father History Unknown: Yes Family Medical History: No Reported History Mother Family Medical History: Cancer Additional Family Medical History / Comment(s): BREAST CANCER Brother(s) Family Medical History: No Reported History Sister(s) Family Medical History: No Reported History Daughter(s) Family Medical History: No Reported History Son(s) Family Medical History: No Reported History Medications and Allergies Home Medications Medication Instructions Recorded Confirmed Type Aspirin EC [Ecotrin Low Dose] 81 mg PO W/SUPPER 11/10/14 04/30/18 History Furosemide [Lasix] 20 mg PO QAM 11/10/14 04/30/18 History L.acidoph,Paracasei, B.lactis 1 tab PO QAM 11/10/14 04/30/18 History [Probiotic] Levothyroxine Sodium [Synthroid] 75 mcg PO DAILY 11/10/14 04/30/18 History Multivitamins, Thera [Multivitamin 1 tab PO QAM 11/10/14 04/30/18 History (formulary)] Potassium Chloride [K-Tab ER] 10 meq PO Q48H 11/10/14 04/30/18 History Pravastatin Sodium [Pravachol] 40 mg PO W/SUPPER 11/10/14 04/30/18 History Telmisartan [Micardis] 40 mg PO QAM 11/10/14 04/30/18 History Ubidecarenone [Co Q-10] 200 mg PO DAILY@1200 11/10/14 04/30/18 History Warfarin [Coumadin] 2.5 mg PO W/SUPPER 11/10/14 04/30/18 History sitaGLIPtin [Januvia] 100 mg PO QAM 11/10/14 04/30/18 History Calcium/Magnesium/Zinc 1 tab PO W/SUPPER 07/20/16 04/30/18 History [Gathqvx-Pkoedcdjz-Omcw Tablet] Cholecalciferol [Vitamin D3] 1,000 unit PO DAILY@1200 07/20/16 04/30/18 History Cyanocobalamin [Vitamin B-12] 1,000 mcg PO DAILY@1200 07/20/16 04/30/18 History Glimepiride [Amaryl] 2 mg PO AC-BID 07/20/16 04/30/18 History Krill Oil 500 mg PO W/SUPPER 07/20/16 04/30/18 History Cranberry Fruit Extract [Cranberry] 500 mg PO DAILY 04/30/18 04/30/18 History Insulin Glargine [Lantus] 35 unit SQ DAILY 04/30/18 04/30/18 History Insulin Glargine [Lantus] 50 unit SQ W/SUPPER 04/30/18 04/30/18 History Mirabegron [Myrbetriq] 50 mg PO DAILY 04/30/18 04/30/18 History Allergies Allergy/AdvReac Type Severity Reaction Status Date / Time No Known Allergies Allergy Verified 04/30/18 10:00 Physical Exam Vitals: Vital Signs Temp Pulse Pulse Resp BP BP Pulse Ox 04/30/18 23:00 97.9 F 79 18 122/63 94 L 04/30/18 17:10 99.2 F 98 20 139/70 92 L 04/30/18 16:00 93 16 135/85 96 04/30/18 15:00 139/84 04/30/18 12:00 82 18 164/93 92 L 04/30/18 11:30 82 16 140/88 95 04/30/18 09:36 98.0 F 68 18 130/96 98 Intake and Output 04/30/18 04/30/1818 14:59 22:59 06:59 Other: Voiding Method Bedpan Incontinent # Voids 1 Weight 95.254 kg - Constitutional General appearance: average body habitus, no acute distress - EENT Eyes: anicteric sclerae, EOMI, PERRLA, no ptosis, no scleral icterus, normal appearance ENT: hard of hearing, NA/AT, normal oropharynx, no thrush Ears: bilateral: normal - Neck Neck: no lymphadenopathy, normal ROM, no rigidity, no stridor, no thyromegaly Carotids: bilateral: upstroke normal - Respiratory Respiratory: bilateral: diminished, negative: dullness, rales, rhonchi, wheezing , prolonged expiration, prolonged inspiration - Cardiovascular Rhythm: regular Heart sounds: normal: S1, S2 Abnormal Heart Sounds: systolic murmur - Gastrointestinal General gastrointestinal: normal bowel sounds, soft, no splenomegaly, no tenderness, umbilical hernia, ventral hernia - Integumentary Integumentary: normal, normal turgor - Neurologic Neurologic: CNII-XII intact - Musculoskeletal Musculoskeletal: generalized weakness, strength equal bilaterally - Psychiatric Psychiatric: A&O x's 3, appropriate affect, intact judgment & insight Results CBC & Chem 7: 04/30/18 09:55 04/30/18 09:55 Labs: Abnormal Lab Results - Last 24 Hours (Table) 04/30/18 04/30/18 04/30/18 Range/Units 09:55 09:55 09:55 WBC 14.3 H (3.8-10.6) k/uL Neutrophils # 12.4 H (1.3-7.7) k/uL Lymphocytes # 0.7 L (1.0-4.8) k/uL D-Dimer 1.67 H (<0.60) mg/L FEU BUN 32 H (7-17) mg/dL Creatinine 1.13 H (0.52-1.04) mg/dL Glucose 222 H (74-99) mg/dL POC Glucose (mg/dL) (75-99) mg/dL AST 40 H (14-36) U/L ALT 53 H (9-52) U/L Alkaline Phosphatase 134 H (38-126) U/L Urine Protein (Negative) Urine Glucose (UA) (Negative) Ur Leukocyte Esterase (Negative) Urine WBC (0-5) /hpf Urine Bacteria (None) /hpf Urine Mucus (None) /hpf 04/30/18 04/30/18 04/30/18 Range/Units 12:00 17:25 20:55 WBC (3.8-10.6) k/uL Neutrophils # (1.3-7.7) k/uL Lymphocytes # (1.0-4.8) k/uL D-Dimer (<0.60) mg/L FEU BUN (7-17) mg/dL Creatinine (0.52-1.04) mg/dL Glucose (74-99) mg/dL POC Glucose (mg/dL) 330 H 359 H (75-99) mg/dL AST (14-36) U/L ALT (9-52) U/L Alkaline Phosphatase (38-126) U/L Urine Protein 1+ H (Negative) Urine Glucose (UA) 2+ H (Negative) Ur Leukocyte Esterase Small H (Negative) Urine WBC 12 H (0-5) /hpf Urine Bacteria Rare H (None) /hpf Urine Mucus Rare H (None) /hpf Thrombosis Risk Factor Assmnt - DVT/VTE Prophylaxis DVT/VTE Prophylaxis: Pharmacologic Prophylaxis ordered, Mechanical Prophylaxis ordered - Choose All That Apply Each Factor Represents 1 point: Obesity (BMI >25) Each Risk Factor Represents 3 Points: History of DVT/PE Thrombosis Risk Factor Assessment Total Risk Factor Score: 4 Thrombosis Risk Factor Assessment Level: Moderate Risk Assessment and Plan Assessment: Assessment and plan: 1. Recurrent falls and gait dysfunction. we will consult PT and OT along with rn social services for further evaluation, patient will likely needs placement. 2. Right shoulder pain and synovitis in the 1st and second MCP joints. could related to OA doubt RA at this stage. 3. Minimal prerenal Azotemia. encourage oral intake of fluid, we will monitor CMP. 4 Chronic systolic heart failure. Continue patient on Lasix 20 mg orally once every day,Micardis 40 mg orally daily. 5. Diabetes mellitus type 2. Continue patient on Lantus 50 units at bedtime and 35 units in AM along with sliding scale insulin, continue patient on Amaryl 4 mg in the morning and 2 mg at bedtime we will add Humalog 6 units AC meals tid. Continue BGM before each meal and at bedtime. 6. Chronic atrial fibrillation. Continue Coumadin and monitor PT and INR. her INR is subtherapeutic. 7. Hypertension and hypertensive cardiovascular disease. Continue Micardia 40 mg orally daily. 8. Hypothyroidism. Continue levothyroxin 75 g orally once every day. 9. Hyperlipidemia. we will continue wit Pravachol 40mg orally at bedtime. 10. Overactive bladder. we will continue with Myrbetriq 50 mg orally daily. 11. DVT prophylaxis. we will continue with coumadin 2.5 mg po qhs. 12. GI prophylaxis. we continue with protonix 40 mg orally daily. 13. Observation. 14. code status not discussed.
[2018-05-01] MEDS: LEVOTHYROXINE 75 MCG TAB PO SCH (06:23)
[2018-05-01 07:01] LABS: Glucose,Whole Blood 199 mg/dL (75-99)
[2018-05-01] MEDS: GLIMEPIRIDE 2 MG TAB PO SCH ×2 (08:08→17:31)
[2018-05-01] MEDS: INSULIN ASPART 100 UNIT/ML 1 ML 10 ML VIAL SQ SCH ×7 (08:10→22:18)
[2018-05-01] MEDS: FUROSEMIDE 20 MG TAB PO SCH (08:16)
[2018-05-01] MEDS: LACTOBACILLUS ACIDOPH & BULGAR 1 EACH PACKET PO SCH (08:16)
[2018-05-01] MEDS: LOSARTAN 50 MG TAB PO SCH (08:17)
[2018-05-01] MEDS: LINAGLIPTIN 5 MG TABLET PO SCH (08:17)
[2018-05-01] MEDS: Mirabegron [Myrbetriq] PO SCH (08:47)
[2018-05-01] MEDS: INSULIN DETEMIR 100 UNIT/ML 10 ML VIAL SQ SCH ×2 (08:48→18:35)
[2018-05-01] MEDS ORDERED: NON-FORMULARY DRUG (Cranberry Fruit Extract [Cranberry] 500 MG) PO SCH (09:00)
[2018-05-01] MEDS ORDERED: POTASSIUM CHLORIDE ER 10 MEQ TAB.ER.PRT PO SCH (09:00)
[2018-05-01 09:12] LABS: INR 1.2 (<1.2); Prothrombin Time 11.4 sec (9.0-12.0)
[2018-05-01] MEDS: PANTOPRAZOLE 40 MG TABLET PO SCH (09:15)
[2018-05-01] MEDS: CYANOCOBALAMIN 500 MCG TAB PO SCH (11:27)
[2018-05-01] MEDS: MULTIVITAMINS, THERA 1 EACH TAB PO SCH (11:27)
[2018-05-01] MEDS: CHOLECALCIFEROL 1,000 UNIT TAB PO SCH (11:27)
[2018-05-01 11:45] LABS: Glucose,Whole Blood 161 mg/dL (75-99)
[2018-05-01] MEDS ORDERED: NON-FORMULARY DRUG (Ubidecarenone [Co Q-10] 200 MG) PO SCH (12:00)
[2018-05-01 12:12] VITALS: BMI 33.9
[2018-05-01] MEDS: COLCHICINE 0.6 MG EACH PO SCH ×2 (14:06→22:18)
--- NOTE | 2018-05-01 14:21 | P.PN ---
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 after talking to her daughter she stated that she is really here for placement and she has been working on it , patient usually has a nurse aid to assist in shower, and when the EMS personnel get there there was a urine smell in the apartment. 05/01: Patient states she slept okay last night. She continues to have some pain in the right arm but it is improved from yesterday. Patient will be started on colchicine 0.6 mg twice daily. Physical therapy is to evaluate the patient. Anticipate probable discharge tomorrow. Review Of Systems: Constitutional: No fever, no chills, no night sweats. No weight change. No weakness, fatigue or lethargy. No daytime sleepiness. EENT: No headache. No blurred vision or double vision, no loss of vision. No loss of Hearing, no ringing in the ears, no dizziness. No nasal drainage or congestion. No epistaxis. No sore throat. Lungs: No shortness of breath, cough, no sputum production. No wheezing. Cardiovascular: No chest pain, no lower extremity edema. No palpitations. No paroxysmal nocturnal dyspnea. No orthopnea. No lightheadedness or dizziness. No syncopal episodes. Abdominal: No abdominal pain. No nausea, vomiting. No diarrhea. No constipation. No bloody or tarry stools.. No loss of appetite. Genitourinary: No dysuria, increased frequency, urgency. No urinary retention. Musculoskeletal: No myalgias. + muscle weakness, + gait dysfunction, no frequent falls. No back pain. No neck pain. Integumentary: No wounds, no lesions. No rash or pruritus. No unusual bruising. No change in hair or nails. Neurologic: No aphasia. No facial droop. No change in mentation. No head injury. No headache. No paralysis. No paresthesia. Psychiatric: No depression. No anxiety. No mood swings. Endocrine: No abnormal blood sugars. No weight change. No excessive sweating or thirst. No cold intolerance. Objective - Vital Signs Vital signs: Vital Signs Temp 97.7 F 05/01/18 07:27 Pulse 67 05/01/18 10:06 Resp 17 05/01/18 10:06 BP 126/69 05/01/18 07:27 Pulse Ox 94 L 05/01/18 07:27 Intake & Output 04/30/18 05/01/18 05/01/18 18:59 06:59 18:59 Intake Total 60 118 Balance 60 118 Weight 95.254 kg 95.254 kg Intake: Oral 60 118 Other: Voiding Method Bedpan Bedpan Diaper Incontinent Incontinent # Voids 1 - Exam Constitutional General appearance: average body habitus, no acute distress. Patient is sitting up in bed and eating her lunch. - EENT Eyes: anicteric sclerae, EOMI, PERRLA, no ptosis, no scleral icterus, normal appearance ENT: hard of hearing, NA/AT, normal oropharynx, no thrush Ears: bilateral: normal - Neck Neck: no lymphadenopathy, normal ROM, no rigidity, no stridor, no thyromegaly Carotids: bilateral: upstroke normal - Respiratory Respiratory: bilateral: diminished, negative: dullness, rales, rhonchi, wheezing , prolonged expiration, prolonged inspiration - Cardiovascular Rhythm: regular Heart sounds: normal: S1, S2 Abnormal Heart Sounds: systolic murmur - Gastrointestinal General gastrointestinal: normal bowel sounds, soft, no splenomegaly, no tenderness, umbilical hernia, ventral hernia - Integumentary Integumentary: normal, normal turgor - Neurologic Neurologic: CNII-XII intact - Musculoskeletal Musculoskeletal: generalized weakness, strength equal bilaterally - Psychiatric Psychiatric: A&O x's 3, appropriate affect, intact judgment & insight - Labs CBC & Chem 7: 04/30/18 09:55 04/30/18 09:55 Labs: Abnormal Lab Results - Last 24 Hours (Table) 04/30/18 04/30/18 04/30/18 Range/Units 09:55 17:25 20:55 INR (<1.2) POC Glucose (mg/dL) 330 H 359 H (75-99) mg/dL Hemoglobin A1c 10.7 H (4.0-6.0) % 05/01/18 05/01/18 05/01/18 Range/Units 06:56 08:46 11:35 INR 1.2 H (<1.2) POC Glucose (mg/dL) 199 H 161 H (75-99) mg/dL Hemoglobin A1c (4.0-6.0) % Assessment and Plan Plan: 1. Recurrent falls and gait dysfunction. we will consult PT and OT along with social sciences research scientist for further evaluation, patient will likely needs placement. 2. Right shoulder pain and synovitis in the 1st and second MCP joints. could related to OA doubt RA at this stage. Colchicine 0.6 mg twice daily ordered 3. Minimal prerenal Azotemia. encourage oral intake of fluid, we will monitor CMP. 4 Chronic systolic heart failure. Continue patient on Lasix 20 mg orally once every day,Micardis 40 mg orally daily. 5. Diabetes mellitus type 2. Continue patient on Lantus 50 units at bedtime and 35 units in AM along with sliding scale insulin, continue patient on Amaryl 4 mg in the morning and 2 mg at bedtime we will add Humalog 6 units AC meals tid. Continue BGM before each meal and at bedtime. 6. Chronic atrial fibrillation. Continue Coumadin and monitor PT and INR. her INR is subtherapeutic. 7. Hypertension and hypertensive cardiovascular disease. Continue Micardia 40 mg orally daily. 8. Hypothyroidism. Continue levothyroxin 75 g orally once every day. 9. Hyperlipidemia. we will continue wit Pravachol 40mg orally at bedtime. 10. Overactive bladder. we will continue with Myrbetriq 50 mg orally daily. 11. DVT prophylaxis. we will continue with coumadin 2.5 mg po qhs. 12. GI prophylaxis. we continue with protonix 40 mg orally daily. 13. Observation. 14. code status not discussed. Discharge plan: Most likely home with homecare Impression and plan of care have been directed as dictated by the signing physician. Rhonda Davis nurse practitioner acting as scribe for signing physician.
[2018-05-01] MEDS: ACETAMINOPHEN TAB 325 MG TAB PO PRN (15:56)
[2018-05-01 17:02] LABS: Glucose,Whole Blood 121 mg/dL (75-99)
[2018-05-01] MEDS: ASPIRIN 81 MG PO SCH (17:31)
[2018-05-01] MEDS: PRAVASTATIN SODIUM 40 MG TAB PO SCH (17:32)
[2018-05-01] MEDS ORDERED: WARFARIN 5 MG TAB PO ONE (18:00)
[2018-05-01 20:59] LABS: Glucose,Whole Blood 113 mg/dL (75-99)
[2018-05-02] MEDS: LEVOTHYROXINE 75 MCG TAB PO SCH (06:11)
[2018-05-02] MEDS: SODIUM CHLORIDE 0.9% 1,000 ML IV SCH (06:12)
[2018-05-02 07:34] LABS: Glucose,Whole Blood 60 mg/dL (75-99)
[2018-05-02] MEDS: INSULIN ASPART 100 UNIT/ML 1 ML 10 ML VIAL SQ SCH ×4 (07:45→12:55)
[2018-05-02 07:46] LABS: Glucose,Whole Blood 94 mg/dL (75-99)
[2018-05-02] MEDS: GLIMEPIRIDE 2 MG TAB PO SCH (07:46)
[2018-05-02 08:58] LABS: Glucose,Whole Blood 166 mg/dL (75-99)
[2018-05-02] MEDS: COLCHICINE 0.6 MG EACH PO SCH (08:58)
[2018-05-02] MEDS: INSULIN DETEMIR 100 UNIT/ML 10 ML VIAL SQ SCH (08:58)
[2018-05-02] MEDS: PANTOPRAZOLE 40 MG TABLET PO SCH (08:58)
[2018-05-02] MEDS: FUROSEMIDE 20 MG TAB PO SCH (08:58)
[2018-05-02] MEDS: LACTOBACILLUS ACIDOPH & BULGAR 1 EACH PACKET PO SCH (08:59)
[2018-05-02] MEDS: LINAGLIPTIN 5 MG TABLET PO SCH (08:59)
[2018-05-02] MEDS: Mirabegron [Myrbetriq] PO SCH (08:59)
[2018-05-02] MEDS: LOSARTAN 50 MG TAB PO SCH (08:59)
[2018-05-02 09:03] LABS: Basophils # (A) 0.1 k/uL (0-0.2); Basophils % (A) 1 %; Eosinophils # (A) 0.1 k/uL (0-0.7); Eosinophils % (A) 1 %; HCT 38.9 % (34.0-46.0); HGB 12.5 gm/dL (11.4-16.0); Lymphocytes % (A) 10 %; MCHC 32.3 g/dL (31.0-37.0); MCV 92.9 fL (80.0-100.0); Mean Platelet Volume 7.1; Monocytes # (A) 0.6 k/uL (0-1.0); Monocytes % (A) 7 %; Neutrophils # (A) 7.6 k/uL (1.3-7.7); Neutrophils % (A) 79 %; Platelet Count 250 k/uL (150-450); RBC 4.19 m/uL (3.80-5.40); RDW 12.8 % (11.5-15.5); WBC 9.7 k/uL (3.8-10.6)
[2018-05-02 09:13] LABS: INR 1.3 (<1.2)
[2018-05-02 09:16] LABS: Albumin 2.9 g/dL (3.5-5.0); Calcium 8.4 mg/dL (8.4-10.2); Potassium 4.3 mmol/L (3.5-5.1); Total Bilirubin 0.6 mg/dL (0.2-1.3); Total Protein 6.1 g/dL (6.3-8.2)
--- NOTE | 2018-05-02 11:46 | P.CONS ---
History of Present Illness - Chief Complaint Gait disturbance, right hemiparesthesias - History of Present Illness I had the opportunity see patient for inpatient rehab consultation with regard to gait disturbance. She was admitted to [facility] April 30 acute onset right -sided weakness. Head CT demonstrates atrophy and white matter change. Right elbow x-ray with osteoarthritis. Chest x-ray negative. PT reports maximal assist to person and to stand. PT and OT working with patient at this time and second person is now for safety. Previous functional history as this from patient: 87-year-old right-handed white female who is and lives in [facility] with . Meals provided. Daughter does the laundry and driving. Patient independent with standing shower and gait with [address] Cannon is regular doctor. Denies tobacco or alcohol history. Review of Systems Review of systems: ENT: Denies sneezes or discharge. Eyes: Denies discharge or photophobia. Cardiac: Denies chest pain or palpitation. Pulmonary: Denies cough or shortness of breath. Breast: Denies discharge or lumps. Gastrointestinal: Denies nausea, emesis, constipation, diarrhea. Genitourinary: Denies discharge or frequency. Musculoskeletal: Denies muscle or bone aches. Neurologic: Right-sided weakness and apraxia. Dysarthric/mildly aphasic. Endocrine: Denies shakes or sweats. Oncology: Denies cancers. Dermatologic: Denies rash, itching, pruritus. ALLERGY/immunology: Denies sneezes, rashes. Past Medical History Past Medical History: Diabetes Mellitus, Deep Vein Thrombosis (DVT), Hyperlipidemia, Hypertension, Osteoarthritis (OA), Thyroid Disorder Additional Past Medical History / Comment(s): back pain, diverticulitis, neuropathy,uti's, upper dental bridge, 2017 abn stress test went for cath no stents. per 2015 dicated h&p it mentioned hx of afib and chf-pt has no knowledge of this. 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 History of Any Multi-Drug Resistant Organisms: None Reported Past Surgical History: Adenoidectomy, Bowel Resection, Tonsillectomy Additional Past Surgical History / Comment(s): colostomy with reversal, DVT. Colonoscopy and 2012 this was her 2nd one. past rt fac skin bx pt stated no cancer Past Anesthesia/Blood Transfusion Reactions: No Reported Reaction Smoking Status: Never smoker - Past Family History Father History Unknown: Yes Family Medical History: No Reported History Mother Family Medical History: Cancer Additional Family Medical History / Comment(s): BREAST CANCER Brother(s) Family Medical History: No Reported History Sister(s) Family Medical History: No Reported History Daughter(s) Family Medical History: No Reported History Son(s) Family Medical History: No Reported History Medications and Allergies Home Medications Medication Instructions Recorded Confirmed Type Aspirin EC [Ecotrin Low Dose] 81 mg PO W/SUPPER 11/10/14 04/30/18 History Furosemide [Lasix] 20 mg PO QAM 11/10/14 04/30/18 History L.acidoph,Paracasei, B.lactis 1 tab PO QAM 11/10/14 04/30/18 History [Probiotic] Levothyroxine Sodium [Synthroid] 75 mcg PO DAILY 11/10/14 04/30/18 History Multivitamins, Thera [Multivitamin 1 tab PO QAM 11/10/14 04/30/18 History (formulary)] Potassium Chloride [K-Tab ER] 10 meq PO Q48H 11/10/14 04/30/18 History Pravastatin Sodium [Pravachol] 40 mg PO W/SUPPER 11/10/14 04/30/18 History Telmisartan [Micardis] 40 mg PO QAM 11/10/14 04/30/18 History Ubidecarenone [Co Q-10] 200 mg PO DAILY@119911/10/14 04/30/18 History Warfarin [Coumadin] 2.5 mg PO W/SUPPER 11/10/14 04/30/18 History sitaGLIPtin [Januvia] 100 mg PO QAM 11/10/14 04/30/18 History Calcium/Magnesium/Zinc 1 tab PO W/SUPPER 07/20/16 04/30/18 History [Sbqzaql-Yrnktabzk-Tvmv Tablet] Cholecalciferol [Vitamin D3] 1,000 unit PO DAILY@1200 07/20/16 04/30/18 History Cyanocobalamin [Vitamin B-12] 1,000 mcg PO DAILY@1200 07/20/16 04/30/18 History Glimepiride [Amaryl] 2 mg PO AC-BID 07/20/16 04/30/18 History Krill Oil 500 mg PO W/SUPPER 07/20/16 04/30/18 History Cranberry Fruit Extract [Cranberry] 500 mg PO DAILY 04/30/18 04/30/18 History Insulin Glargine [Lantus] 35 unit SQ DAILY 04/30/18 04/30/18 History Insulin Glargine [Lantus] 50 unit SQ W/SUPPER 04/30/18 04/30/18 History Mirabegron [Myrbetriq] 50 mg PO DAILY 04/30/18 04/30/18 History Allergies Allergy/AdvReac Type Severity Reaction Status Date / Time No Known Allergies Allergy Verified 04/30/18 10:00 Physical Exam Vitals: Vital Signs Temp Pulse Resp BP Pulse Ox 05/02/18 08:57 65 17 05/02/18 08:03 96.7 F L 65 16 132/70 96 05/02/18 07:00 98.5 F 66 16 120/74 96 05/01/18 23:00 97.9 F 71 20 126/70 93 L 05/01/18 15:43 74 18 05/01/18 15:38 98.9 F 74 18 136/69 93 L 05/01/18 15:00 99.1 F 80 20 118/88 95 Intake and Output 05/01/18 05/02/18 05/02/18 22:59 06:59 14:59 Intake Total 200 100 240 Balance 200 100 240 Intake: Oral 200 100 240 Other: Voiding Method Bedpan Bedpan Incontinent Diaper # Voids 1 2 Skin: Good color, texture, turgor. General: Overweight build and comfortable appearance. Head: Normocephalic, atraumatic. Eyes: Symmetric. Pupils equal round. Ears: Symmetric. Hearing within normal limits. Mouth: Clear. Neck: Supple. Carotid without bruit. Cardiac: Regular rate and rhythm. Lungs: Clear anteriorly and posteriorly. Abdomen: Soft active nontender. Extremities: Normal tone. Neurological: Mental status: Alert, cooperative, pleasant. Cranial nerves: Symmetric facial tone and trapezius. Motor: Normal strength and isolation left side. Right arm and leg slightly apraxic and definitely weak. Sensation: Intact throughout. DTRs: Symmetric and equal throughout. Mobility: Sits and stands with physical assistance, second person for safety. Difficulty weightbearing right leg only. Results CBC & Chem 7: 05/02/18 08:34 05/02/18 08:34 Labs: Abnormal Lab Results - Last 24 Hours (Table) 05/01/18 05/01/18 05/01/18 Range/Units 11:35 16:58 20:42 INR (<1.2) BUN (7-17) mg/dL Creatinine (0.52-1.04) mg/dL Glucose (74-99) mg/dL POC Glucose (mg/dL) 161 H 121 H 113 H (75-99) mg/dL AST (14-36) U/L ALT (9-52) U/L Total Protein (6.3-8.2) g/dL Albumin (3.5-5.0) g/dL 05/02/18 05/02/18 05/02/18 Range/Units 07:18 08:34 08:34 INR 1.3 H (<1.2) BUN 26 H (7-17) mg/dL Creatinine 1.10 H (0.52-1.04) mg/dL Glucose 141 H (74-99) mg/dL POC Glucose (mg/dL) 60 L (75-99) mg/dL AST 68 H (14-36) U/L ALT 73 H (9-52) U/L Total Protein 6.1 L (6.3-8.2) g/dL Albumin 2.9 L (3.5-5.0) g/dL 05/02/18 Range/Units 08:56 INR (<1.2) BUN (7-17) mg/dL Creatinine (0.52-1.04) mg/dL Glucose (74-99) mg/dL POC Glucose (mg/dL) 166 H (75-99) mg/dL AST (14-36) U/L ALT (9-52) U/L Total Protein (6.3-8.2) g/dL Albumin (3.5-5.0) g/dL Assessment and Plan (1) Generalized weakness Current Visit: Yes Status: Acute Code(s): R53.1 - WEAKNESS SNOMED Code(s) : 74286999 Plan: Impression: 1. Gait disturbance. 2. 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 3. Right arm pain, possible RSD. 5. Osteoarthritis. 4. Diabetes. 5. Hypertension. 6. Dyslipidemia. Transplant: At this time PT and OT are ongoing. We'll add speech therapy for communication cognition. Discussed possible inpatient rehab with patient, , daughter. Have also discussed a right arm pain. Consider three-phase bone scan with attention to right elbow and hand here or in rehab.
[2018-05-02 12:27] VITALS: RESP 18
[2018-05-02] MEDS: CHOLECALCIFEROL 1,000 UNIT TAB PO SCH (12:28)
[2018-05-02] MEDS: CYANOCOBALAMIN 500 MCG TAB PO SCH (12:29)
[2018-05-02] MEDS: MULTIVITAMINS, THERA 1 EACH TAB PO SCH (12:29)
[2018-05-02] MEDS: ACETAMINOPHEN TAB 325 MG TAB PO PRN (12:29)
[2018-05-02 12:38] LABS: Glucose,Whole Blood 161 mg/dL (75-99)
[2018-05-02] MEDS ORDERED: methylPREDNISolone SOD SUCCI 40 MG/ML 1 ML VIAL IV STA (12:44)
--- NOTE | 2018-05-02 13:01 | P.DS ---
Providers Date of admission: 04/30/18 16:03 Expected date of discharge: 05/02/18 Attending physician: Vanessa Hogan [facility] Course: This is an 87-year-old female one of Dr. 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 after talking to her daughter she stated that she is really here for placement and she has been working on it , patient usually has a nurse aid to assist in shower, and when the EMS personnel get there there was a urine smell in the apartment. 05/01: Patient states she slept okay last night. She continues to have some pain in the right arm but it is improved from yesterday. Patient will be started on colchicine 0.6 mg twice daily. Physical therapy is to evaluate the patient. Anticipate probable discharge tomorrow. 05/02: Vital signs have been stable. Patient did have one episode of hypoglycemia with blood sugars 60 this morning and insulins will be adjusted, Amaryl and scale insulin discontinued. BUN 26, creatinine 1.10, AST 68 and ALT 73. INR is 1.3. PT/OT has recommended subacute rehab. Dr. Dumont consulted and patient will be accepted to [facility]. Patient will be discharged once all the arrangements are completed. Discharge diagnoses: 1. Recurrent falls and gait dysfunction. 2. Right shoulder pain and synovitis in the 1st and second MCP joints could related to OA or gout. 3. Minimal prerenal Azotemia (no bill) 4 Chronic systolic heart failure. 5. Diabetes mellitus type 2. 6. Chronic atrial fibrillation. 7. Hypertension and hypertensive cardiovascular disease. 8. Hypothyroidism. 9. Hyperlipidemia. 10. Overactive bladder. Discharge plan: Most likely home with homecare Impression and plan of care have been directed as dictated by the signing physician. Rhonda Davis nurse practitioner acting as scribe for signing physician. Patient Condition at Discharge: Good Plan - Discharge Summary New Discharge Prescriptions: New Acetaminophen Tab [Tylenol] 650 mg PO Q6HR PRN tab PRN Reason: Mild Pain Or Fever > 100.5 Colchicine [Colcrys] 0.6 mg PO BID each Insulin Aspart [NovoLOG (formulary)] 6 unit SQ AC-TID vial Continue Warfarin [Coumadin] 2.5 mg PO W/SUPPER Pravastatin Sodium [Pravachol] 40 mg PO W/SUPPER sitaGLIPtin [Januvia] 100 mg PO QAM Ubidecarenone [Co Q-10] 200 mg PO DAILY@1200 Aspirin EC [Ecotrin Low Dose] 81 mg PO W/SUPPER Multivitamins, Thera [Multivitamin (formulary)] 1 tab PO QAM Furosemide [Lasix] 20 mg PO QAM Potassium Chloride [K-Tab ER] 10 meq PO Q48H Levothyroxine Sodium [Synthroid] 75 mcg PO DAILY L.acidoph,Paracasei, B.lactis [Probiotic] 1 tab PO QAM Telmisartan [Micardis] 40 mg PO QAM Krill Oil 500 mg PO W/SUPPER Cyanocobalamin [Vitamin B-12] 1,000 mcg PO DAILY@1200 Cholecalciferol [Vitamin D3] 1,000 unit PO DAILY@1200 Calcium/Magnesium/Zinc [Fhclagn-Yzrcmruzw-Sohs Tablet] 1 tab PO W/SUPPER Cranberry Fruit Extract [Cranberry] 500 mg PO DAILY Mirabegron [Myrbetriq] 50 mg PO DAILY Changed Insulin Glargine [Lantus] 18 unit SQ W/SUPPER #0 Insulin Glargine [Lantus] 30 unit SQ DAILY #0 Discontinued Glimepiride [Amaryl] 2 mg PO AC-BID Discharge Medication List Aspirin EC [Ecotrin Low Dose] 81 mg PO W/SUPPER 11/10/14 [History] Furosemide [Lasix] 20 mg PO QAM 11/10/14 [History] L.acidoph,Paracasei, B.lactis [Probiotic] 1 tab PO QAM 11/10/14 [History] Levothyroxine Sodium [Synthroid] 75 mcg PO DAILY 11/10/14 [History] Multivitamins, Thera [Multivitamin (formulary)] 1 tab PO QAM 11/10/14 [History] Potassium Chloride [K-Tab ER] 10 meq PO Q48H 11/10/14 [History] Pravastatin Sodium [Pravachol] 40 mg PO W/SUPPER 11/10/14 [History] Telmisartan [Micardis] 40 mg PO QAM 11/10/14 [History] Ubidecarenone [Co Q-10] 200 mg PO DAILY@1200 11/10/14 [History] Warfarin [Coumadin] 2.5 mg PO W/SUPPER 11/10/14 [History] sitaGLIPtin [Januvia] 100 mg PO QAM 11/10/14 [History] Calcium/Magnesium/Zinc [Ultfqxf-Ntlgwdoor-Oyot Tablet] 1 tab PO W/SUPPER [History] Cholecalciferol [Vitamin D3] 1,000 unit PO DAILY@1200 07/20/16 [History] Cyanocobalamin [Vitamin B-12] 1,000 mcg PO DAILY@1200 07/20/16 [History] Krill Oil 500 mg PO W/SUPPER 07/20/16 [History] Cranberry Fruit Extract [Cranberry] 500 mg PO DAILY 04/30/18 [History] Mirabegron [Myrbetriq] 50 mg PO DAILY 04/30/18 [History] Acetaminophen Tab [Tylenol] 650 mg PO Q6HR PRN tab 05/02/18 [Rx] Colchicine [Colcrys] 0.6 mg PO BID each 05/02/18 [Rx] Insulin Aspart [NovoLOG (formulary)] 6 unit SQ AC-TID vial 05/02/18 [Rx] Insulin Glargine [Lantus] 18 unit SQ W/SUPPER #0 05/02/18 [Rx] Insulin Glargine [Lantus] 30 unit SQ DAILY #0 05/02/18 [Rx] Follow up Appointment(s)/Referral(s): Fransico Cannon MD [Primary Care Provider] - 1 Week (after discharge from INpatient rehab) Discharge Disposition: OTHER INSTITUTION NOT DEFINED
[2018-05-02 15:08] VITALS: BP 123/62; PULSE 72; TEMP 97.8
[2018-05-02] MEDS ORDERED: INSULIN DETEMIR 100 UNIT/ML 10 ML VIAL SQ SCH (17:30)
[2018-05-02] MEDS ORDERED: WARFARIN 5 MG TAB PO ONE (18:00)
[2018-05-03] MEDS ORDERED: INSULIN DETEMIR 100 UNIT/ML 10 ML VIAL SQ SCH (09:00)
== END 2018-05-02 16:07 ==
LOC: EC 09:34 → 4MS4W 16:03
PROVIDERS: ADMIT Internal Medicine; ATTEND Internal Medicine
DX: R62.7 Adult failure to thrive (principal); E86.0 Dehydration; I25.10 Atherosclerotic heart disease of native coronary artery without angina pectoris; E11.42 Type 2 diabetes mellitus with diabetic polyneuropathy; Z86.718 Personal history of other venous thrombosis and embolism; M19.90 Unspecified osteoarthritis, unspecified site; M19.021 Primary osteoarthritis, right elbow; E03.9 Hypothyroidism, unspecified; G81.91 Hemiplegia, unspecified affecting right dominant side; R29.6 Repeated falls; E11.22 Type 2 diabetes mellitus with diabetic chronic kidney disease; E11.649 Type 2 diabetes mellitus with hypoglycemia without coma; E78.5 Hyperlipidemia, unspecified; R26.9 Unspecified abnormalities of gait and mobility; N18.9 Chronic kidney disease, unspecified; M65.9 Synovitis and tenosynovitis, unspecified; N32.81 Overactive bladder; I13.0 Hypertensive heart and chronic kidney disease with heart failure and stage 1 through stage 4 chronic kidney disease, or unspecified chronic kidney disease; I48.2 Chronic atrial fibrillation; I50.22 Chronic systolic (congestive) heart failure; Z79.01 Long term (current) use of anticoagulants; Z87.440 Personal history of urinary (tract) infections; Z97.2 Presence of dental prosthetic device (complete) (partial); Z79.82 Long term (current) use of aspirin; Z80.3 Family history of malignant neoplasm of breast; Z79.899 Other long term (current) drug therapy; Z79.4 Long term (current) use of insulin
CPT/HCPCS: 96361 ×2; 96374; 99285; 36415; 93005; 97116; 97530 ×2; 97162; 97535; 97167; 92523; 85379; 83880; 80053 ×2; 82150; 82550; 82553; 83690; 83735; 84484; 85025 ×2; 85610 ×3; 85730; 81001; 83036; 73070; 71046; 70450; G0378 ×3; J2920